=== PATIENT | male | born 1965 | race Caucasian/White ===

== ENCOUNTER 2016-12-22 11:08 | Inpatient (IN) | payer MEDICARE ==
[~2016-12-22] VITALS: Ht 165.1 cm; Wt 75.6 kg
[~2016-12-22 11:08] MED LIST: AMLO5TAB2 PO; BENZ1TAB PO; INVE3TAB2 PO; LITH450T PO; METO50TA PO; PALI234P IM; SERO300T PO
[2016-12-22 11:10] VITALS: BP 125/85; PULSE 84; RESP 16; TEMP 98.2; O2SAT 98
--- NOTE | 2016-12-22 11:35 | PD ---
HPI . can't sleep for 3 days Chief Complaint: Psychiatric Symptoms Time Seen by Provider: 11:35 Travel History International Travel<30 days: No Contact w/Intl Traveler<30days: No Traveled to known affect area: No History of Present Illness HPI 51-year-old male with hypertension, bipolar disorder and schizophrenia here with complaints of not being able sleep for the past 3 days. Patient says that he was regularly using lithium, but approximately one week ago his psychiatric provider decided to take him off that medication. He believes his consequence a few days later he has not been able to sleep due to being a little manic at home. He went to his [facility] today and was resumed on lithium, however due to his inability to sleep for the past 3 days he was advised to come to the emergency department for further evaluation. Patient is here and has no specific complaints. He denies any suicidal or homicidal ideation. He denies any mood disorder or abnormal thoughts or behaviors. He also denies any physical complaints. He tells me that overall he is feeling well and just needs to sleep. He is accompanied by his brother. Apparently patient lives with his mom, but she is been out of town for the past several days due to a recent in the family. This seems to have prompted the [facility] provider to send him in as he is not safe at home alone. PFSH Past Medical History Bipolar Disorder: Yes Anxiety: Yes Depression: Yes Cancer: No Cardiovascular Problems: No Diabetes: No Endocrine: No Genitourinary: No Hypertension: Yes Immune Disorder: No Implanted Vascular Access Dvce: No Musculoskeletal: No Neurologic: No Psychiatric: Yes Reproductive: No Respiratory: No Past Surgical History Surgical History: No Previous Surgery Other Surgery: Yes (HERNIA) Social History Alcohol Use: No Tobacco Use: No Substance Use: No Allergies-Medications (Allergen,Severity, Reaction): Coded Allergies: Abilify (Verified Allergy, Severe, tongue swells, 03/25/15) Reported Meds & Prescriptions Reported Meds & Active Scripts Active Seroquel (Quetiapine Fumarate) 300 Mg Tab 300 Mg PO HS [place] Carbonate ER ([place] Carbonate) 450 Mg Tab 450 Mg PO BID Invega (Paliperidone ER) 3 Mg Tab 3 Mg PO DIRECTED Invega Sustenna Inj (Paliperidone Palmitate) 234 Mg/1.5 Ml Inj 234 Mg IM Q21 DAYS Metoprolol Tartrate 50 Mg Tab 50 Mg PO BID Amlodipine (Amlodipine Besylate) 5 Mg Tab 5 Mg PO DAILY Reported Benztropine (Benztropine Mesylate) 0.5 Mg Tab 1 Mg PO HS Review of Systems General / Constitutional: No: Fever Eyes: No: Visual changes HENT: No: Headaches Cardiovascular: No: Chest Pain or Discomfort Respiratory: No: Shortness of Breath Gastrointestinal: No: Abdominal Pain Genitourinary: No: Dysuria Musculoskeletal: No: Pain Skin: No Rash Neurologic: No: Weakness Psychiatric: Positive: Other (insomnia), No: Depression Endocrine: No: Polydipsia Hematologic/Lymphatic: No: Easy Bruising Physical Exam Narrative GENERAL: AAO x 3, no acute distress, Well-nourished, well-developed patient. SKIN: Warm and dry. No visible rashes or bruising. HEAD: Normocephalic and atraumatic. EYES: No scleral icterus. No injection or drainage. EOM intact, PERRLA ENT: No nasal drainage noted. Mucous membranes pink. Airway patent. NECK: Supple, trachea midline. No JVD. No lymphadenopathy CARDIOVASCULAR: Regular rate and rhythm without murmurs, gallops, or rubs. RESPIRATORY: Breath sounds equal bilaterally. No accessory muscle use. No rhonchi or rales. GASTROINTESTINAL: Abdomen soft, non-tender, nondistended. EXTREMITIES: No cyanosis or edema. BACK: No obvious deformity. No CVA tenderness. 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/l, UE and LE 5/5, no focal deficits PSYCH: AAO x 3, flat affect Data Data Last Documented VS Vital Signs Date Time Temp Pulse Resp B/P Pulse Ox O2 Delivery O2 Flow Rate FiO2 12/22/16 11:10 98.2 84 16 125/85 98 Orders Complete Blood Count With Diff (12/22/16 11:42) Comprehensive Metabolic Panel (12/22/16 11:42) Psych Screen (12/22/16 11:42) Drug Screen, Random Urine (12/22/16 11:42) Alcohol (Ethanol) (12/22/16 11:42) Salicylates (Aspirin) (12/22/16 11:42) Tylenol (Acetaminophen) (12/22/16 11:42) Labs Laboratory Tests Test 12/22/16 12/22/16 12:00 12:35 White Blood Count 10.9 TH/MM3 Red Blood Count 5.30 MIL/MM3 Hemoglobin 14.4 GM/DL Hematocrit 43.8 % Mean Corpuscular Volume 82.7 FL Mean Corpuscular Hemoglobin 27.1 PG Mean Corpuscular Hemoglobin 32.7 % Concent Red Cell Distribution Width 14.2 % Platelet Count 268 TH/MM3 Mean Platelet Volume 7.3 FL Neutrophils (%) (Auto) 74.0 % Lymphocytes (%) (Auto) 15.8 % Monocytes (%) (Auto) 8.8 % Eosinophils (%) (Auto) 0.9 % Basophils (%) (Auto) 0.5 % Neutrophils # (Auto) 8.1 TH/MM3 Lymphocytes # (Auto) 1.7 TH/MM3 Monocytes # (Auto) 1.0 TH/MM3 Eosinophils # (Auto) 0.1 TH/MM3 Basophils # (Auto) 0.0 TH/MM3 CBC Comment DIFF FINAL Differential Comment Sodium Level 137 MEQ/L Potassium Level 4.1 MEQ/L Chloride Level 107 MEQ/L Carbon Dioxide Level 22.0 MEQ/L Anion Gap 8 MEQ/L Blood Urea Nitrogen 11 MG/DL Creatinine 1.15 MG/DL Estimat Glomerular Filtration 67 ML/MIN Rate Random Glucose 110 MG/DL Calcium Level 9.7 MG/DL Total Bilirubin 0.5 MG/DL Aspartate Amino Transf 11 U/L (AST/SGOT) Alanine Aminotransferase 22 U/L (ALT/SGPT) Alkaline Phosphatase 127 U/L Total Protein 8.0 GM/DL Albumin 4.2 GM/DL Salicylates Level LESS THAN 1.7 MG/DL Acetaminophen Level LESS THAN 2.0 MCG/ML Ethyl Alcohol Level LESS THAN 3 MG/DL Urine Opiates Screen NEG Urine Barbiturates Screen NEG Urine Amphetamines Screen NEG Urine Benzodiazepines Screen NEG Urine Cocaine Screen NEG Urine Cannabinoids Screen NEG MDM Medical Decision Making Medical Screen Exam Complete: Yes Emergency Medical Condition: Yes Medical Record Reviewed: Yes Differential Diagnosis Insomnia, bipolar disorder, adverse effect of medication Narrative Course 51-year-old male here with complaints of inability to sleep for the past 3 days due to recent medication change. Labs have been ordered. If they're within normal limits, patient will be cleared for psych screen. Laboratory Tests Test 12/22/16 12/22/16 12:00 12:35 White Blood Count 10.9 TH/MM3 Red Blood Count 5.30 MIL/MM3 Hemoglobin 14.4 GM/DL Hematocrit 43.8 % Mean Corpuscular Volume 82.7 FL Mean Corpuscular Hemoglobin 27.1 PG Mean Corpuscular Hemoglobin 32.7 % Concent Red Cell Distribution Width 14.2 % Platelet Count 268 TH/MM3 Mean Platelet Volume 7.3 FL Neutrophils (%) (Auto) 74.0 % Lymphocytes (%) (Auto) 15.8 % Monocytes (%) (Auto) 8.8 % Eosinophils (%) (Auto) 0.9 % Basophils (%) (Auto) 0.5 % Neutrophils # (Auto) 8.1 TH/MM3 Lymphocytes # (Auto) 1.7 TH/MM3 Monocytes # (Auto) 1.0 TH/MM3 Eosinophils # (Auto) 0.1 TH/MM3 Basophils # (Auto) 0.0 TH/MM3 CBC Comment DIFF FINAL Differential Comment Sodium Level 137 MEQ/L Potassium Level 4.1 MEQ/L Chloride Level 107 MEQ/L Carbon Dioxide Level 22.0 MEQ/L Anion Gap 8 MEQ/L Blood Urea Nitrogen 11 MG/DL Creatinine 1.15 MG/DL Estimat Glomerular Filtration 67 ML/MIN Rate Random Glucose 110 MG/DL Calcium Level 9.7 MG/DL Total Bilirubin 0.5 MG/DL Aspartate Amino Transf 11 U/L (AST/SGOT) Alanine Aminotransferase 22 U/L (ALT/SGPT) Alkaline Phosphatase 127 U/L Total Protein 8.0 GM/DL Albumin 4.2 GM/DL Salicylates Level LESS THAN 1.7 MG/DL Acetaminophen Level LESS THAN 2.0 MCG/ML Ethyl Alcohol Level LESS THAN 3 MG/DL Urine Opiates Screen NEG Urine Barbiturates Screen NEG Urine Amphetamines Screen NEG Urine Benzodiazepines Screen NEG Urine Cocaine Screen NEG Urine Cannabinoids Screen NEG Labs reviewed. No urgent abnormalities. Alk phos elevated, recommend outpatient f/u. Patient medically cleared for psych screen. Diagnosis Primary Impression: Bipolar disorder, manic Condition: Stable Radha Duong Dec 22, 2016 11:35 Radha Duong Dec 22, 2016 11:35
[2016-12-22 12:11] LABS: AUTOMATED NEUTROPHIL # 8.1 TH/MM3 (1.8-7.7); BASOPHIL % 0.5 % (0.0-2.0); EOSINOPHIL # 0.1 TH/MM3 (0-0.4); EOSINOPHIL % 0.9 % (0.0-4.0); HEMATOCRIT 43.8 % (39.0-51.0); HEMO FLAGS DIFF FINAL; LYMPH % 15.8 % (9.0-44.0); LYMPHOCYTE # 1.7 TH/MM3 (1.0-4.8); MEAN CELL VOLUME 82.7 FL (80.0-100.0); MEAN CORPUSCULAR HEMOGLOBIN 27.1 PG (27.0-34.0); MEAN CORPUSCULAR HGB CONC 32.7 % (32.0-36.0); MONO % 8.8 % (0.0-8.0); PLATELET COUNT 268 TH/MM3 (150-450); RED CELL DISTRIBUTION WIDTH 14.2 % (11.6-17.2); WHITE BLOOD COUNT 10.9 TH/MM3 (4.0-11.0)
[2016-12-22 12:26] LABS: ALT (GPT) 22 U/L (12-78); ANION GAP 8 MEQ/L (5-15); AST (GOT) 11 U/L (15-37); BLOOD UREA NITROGEN 11 MG/DL (7-18); CHLORIDE 107 MEQ/L (98-107); GLOMERULAR FILTRATION RATE 67 ML/MIN (>89); POTASSIUM 4.1 MEQ/L (3.5-5.1); SODIUM (NA) 137 MEQ/L (136-145)
[2016-12-22 12:27] LABS: ALKALINE PHOSPHATASE 127 U/L (45-117); TOTAL BILIRUBIN ADULT 0.5 MG/DL (0.2-1.0)
[2016-12-22] MEDS ORDERED: BENZ0.5T PO (12:28)
[2016-12-22 12:48] LABS: ACETAMINOPHEN LESS THAN 2.0 MCG/ML (10.0-30.0)
[2016-12-22 13:03] LABS: AMPHETAMINE, URINE NEG (NEG); BARBITURATES, URINE NEG (NEG); COCAINE, URINE NEG (NEG)
[2016-12-22 17:07] VITALS: BP 141/88; PULSE 106; RESP 20; TEMP 97.8; O2SAT 98
[2016-12-22 18:32] VITALS: BP 113/60; PULSE 60; RESP 18; TEMP 98; O2SAT 95
[2016-12-23 02:24] VITALS: BP 141/93; PULSE 125; RESP 18; O2SAT 98
[2016-12-23 06:18] VITALS: PULSE 120
[2016-12-23 06:29] VITALS: BP 138/59; PULSE 120; RESP 18; O2SAT 98
[2016-12-23] MEDS: amLODIPine BESYLATE 5 MG TAB PO SCH (10:45)
[2016-12-23] MEDS: METOPROLOL TARTRATE 50 MG TAB PO SCH ×2 (10:45→20:37)
[2016-12-23 10:50] VITALS: BP 155/100; PULSE 100; RESP 20
--- NOTE | 2016-12-23 10:58 | PD ---
History of Present Illness Chief Complaint: Psychiatric Symptoms Time Seen by Provider: 10:35 Travel History International Travel<30 Days: No Contact w/Intl Traveler<30days: No Known affected area: No Legal Status Legal Status: Gay Act Rashid Act Signed By: Gay Johnson Comment: Avani Kingston History of Present Illness: History of Present Illness HPI 51-year-old male with record history of schizophrenia , paranoid type as well as bipolar disorder who presents to ED sent from [facility] outpatient provider Noah Catalan who apparently saw him in outpatient setting and recommended further evaluation for possible inpatient care. The note from MrLena Catalan reads that " Jose is compliant with medication yet remains manic and psychotic, not sleeping, very confused". It is reported that he has not slept in 3 days. The patient is seen in J pod. Awake, alert male. Poor hygiene. Poor concentration. He is unable to provide a cogent history manner as he is psychotic. He appears internally preoccupied although denies auditory hallucinations. 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 [place]. You know [employer]. He then states " How about them dolphins". He does tell me that he was unable to sleep last night. he is denying any suicidal or homicidal ideation. Patient has urinated in beverage cup while in J pod. Apparently patient lives with his mom, but she is been out of town for the past several days due to a recent in the family. This seems to have prompted the [facility] provider to send him in as he is not safe at home alone. Patient has an extensive psychiatric history including multiple admissions here under the care of Dr. García as well as being sent to [facility]. [facility] Past Medical History Bipolar Disorder: Yes Anxiety: Yes Depression: Yes Cancer: No Cardiovascular Problems: No Diabetes: No Endocrine: No Genitourinary: No Hypertension: Yes Immune Disorder: No Implanted Vascular Access Dvce: No Musculoskeletal: No Neurologic: No Psychiatric: Yes Reproductive: No Respiratory: No Past Surgical History Surgical History: No Previous Surgery Other Surgery: Yes (HERNIA) Psychiatric History Psychiatric History Hx Psychiatric Treatment: Multiple [facility] admissions . Last one in 2013. Has been a patietn at the [facility]. receives outpatietn care at [facility]. History of Inpatient Treatment: Yes Guns or firearms in home: No Social History As per record. Lives with mother. On disability. Unable to obtain any other meaningful history from patient . Hx Alcohol Use: No Hx Tobacco Use: No Hx Substance Use: No Hx of Substance Use Treatment: No Family Psychiatric History Unable to obtain Allergies-Medications (Allergen,Severity, Reaction): Coded Allergies: Abilify (Verified Allergy, Severe, tongue swells, 03/25/15) Reported Meds & Prescriptions Reported Meds & Active Scripts Active Seroquel (Quetiapine Fumarate) 300 Mg Tab 300 Mg PO HS [place] Carbonate ER ([place] Carbonate) 450 Mg Tab 450 Mg PO BID Invega (Paliperidone ER) 3 Mg Tab 3 Mg PO DIRECTED Invega Sustenna Inj (Paliperidone Palmitate) 234 Mg/1.5 Ml Inj 234 Mg IM Q21 DAYS Metoprolol Tartrate 50 Mg Tab 50 Mg PO BID Amlodipine (Amlodipine Besylate) 5 Mg Tab 5 Mg PO DAILY Reported Benztropine (Benztropine Mesylate) 0.5 Mg Tab 1 Mg PO HS Review of Systems ROS Limitations: Psychotic Exam Alert: Yes [place]: Person Mood: Calm Affect: Other (labile) Speech: Clear, Illogical Eye Contact: Indirect Memory Intact: Comment (unable to test) Hallucinations: Other (Appears internally stimulated) Suicidal: Ideation (denies any) Homicidal: Ideation (deneis any) Insight/Judgement poor. Impaired. [facility] Medical Decision Making Medical Record Reviewed: Yes Assessment/Plan 51 year old male with extensive psychiatric history as well as multiple psychiatric admissions who presents to Ed being referred by his outpatient psychiatric provider at [facility]. Patient is psychotic and reported has not slept in 3 days. At this time he requires increase in level of care such as inpatient treatment. He does not appear to have capacity at this time to sign for admission. Will convert to involuntary. Admit to inpatient unit for safety, stabilization adn medication adjustment. Orders Complete Blood Count With Diff (12/22/16 11:42) Comprehensive Metabolic Panel (12/22/16 11:42) Psych Screen (12/22/16 11:42) Drug Screen, Random Urine (12/22/16 11:42) Alcohol (Ethanol) (12/22/16 11:42) Salicylates (Aspirin) (12/22/16 11:42) Tylenol (Acetaminophen) (12/22/16 11:42) Diet Regular Basic (12/23/16 Breakfast) Results Vital Signs Date Time Temp Pulse Resp B/P Pulse Ox O2 Delivery O2 Flow Rate FiO2 12/23/16 10:03 120 18 12/23/16 06:29 120 18 138/59 98 12/23/16 06:18 120 12/23/16 02:24 125 18 141/93 98 12/22/16 18:32 98.0 60 18 113/60 95 Room Air 12/22/16 17:07 97.8 106 20 141/88 98 Room Air 12/22/16 11:10 98.2 84 16 125/85 98 Laboratory Tests Test 12/22/16 12/22/16 12:00 12:35 White Blood Count 10.9 Red Blood Count 5.30 Hemoglobin 14.4 Hematocrit 43.8 Mean Corpuscular Volume 82.7 Mean Corpuscular Hemoglobin 27.1 Mean Corpuscular Hemoglobin 32.7 Concent Red Cell Distribution Width 14.2 Platelet Count 268 Mean Platelet Volume 7.3 Neutrophils (%) (Auto) 74.0 Lymphocytes (%) (Auto) 15.8 Monocytes (%) (Auto) 8.8 Eosinophils (%) (Auto) 0.9 Basophils (%) (Auto) 0.5 Neutrophils # (Auto) 8.1 Lymphocytes # (Auto) 1.7 Monocytes # (Auto) 1.0 Eosinophils # (Auto) 0.1 Basophils # (Auto) 0.0 CBC Comment DIFF FINAL Differential Comment Sodium Level 137 Potassium Level 4.1 Chloride Level 107 Carbon Dioxide Level 22.0 Anion Gap 8 Blood Urea Nitrogen 11 Creatinine 1.15 Estimat Glomerular Filtration 67 Rate Random Glucose 110 Calcium Level 9.7 Total Bilirubin 0.5 Aspartate Amino Transf 11 (AST/SGOT) Alanine Aminotransferase 22 (ALT/SGPT) Alkaline Phosphatase 127 Total Protein 8.0 Albumin 4.2 Salicylates Level LESS THAN 1.7 Acetaminophen Level LESS THAN 2.0 Ethyl Alcohol Level LESS THAN 3 Urine Opiates Screen NEG Urine Barbiturates Screen NEG Urine Amphetamines Screen NEG Urine Benzodiazepines Screen NEG Urine Cocaine Screen NEG Urine Cannabinoids Screen NEG Diagnosis Primary Impression: Schizophrenia, paranoid, chronic Additional Impression: Bipolar disorder, manic Admitting Information Admitting Physician Requests: Admit Condition: Stable Problem Qualifiers Mariella Luna [place] Dec 23, 2016 10:58
[2016-12-23] MEDS ORDERED: MAGNESIUM HYDROXIDE SUSP 30 ML CUP PO PRN (11:00)
[2016-12-23] MEDS ORDERED: ALUMINUM/MAGNESIUM/SIMETH 30 ML CUP PO PRN (11:00)
[2016-12-23] MEDS ORDERED: ACETAMINOPHEN 325 MG TAB PO PRN (11:00)
[2016-12-23 13:21] VITALS: BP 120/91; PULSE 85; RESP 19; TEMP 97.4; O2SAT 98
[2016-12-23 18:14] VITALS: BP 123/91; PULSE 97; RESP 18; TEMP 97.5; O2SAT 97
[2016-12-23] MEDS: BENZTROPINE MESYLATE 1 MG TAB PO SCH (20:36)
[2016-12-23] MEDS ORDERED: QUEtiapine FUMARATE 300 MG TAB PO SCH (21:00)
[2016-12-24 06:09] VITALS: BP 150/98; PULSE 101; RESP 18; TEMP 98.7; O2SAT 96
[2016-12-24 09:43] LABS: ANION GAP 8 MEQ/L (5-15); BICARBONATE 24.4 MEQ/L (21.0-32.0); BLOOD UREA NITROGEN 12 MG/DL (7-18); CHLORIDE 107 MEQ/L (98-107); GLOMERULAR FILTRATION RATE 58 ML/MIN (>89); POTASSIUM 3.7 MEQ/L (3.5-5.1); SODIUM (NA) 139 MEQ/L (136-145)
[2016-12-24 09:46] LABS: HDL CHOLESTEROL 51.8 MG/DL (40.0-60.0); LDL CHOLESTEROL 80 MG/DL (0-99)
[2016-12-24] MEDS: METOPROLOL TARTRATE 50 MG TAB PO SCH ×2 (09:49→20:52)
[2016-12-24] MEDS: amLODIPine BESYLATE 5 MG TAB PO SCH (09:49)
[2016-12-24 12:22] LABS: HEMOGLOBIN A1a 1.6 %; HEMOGLOBIN A1b 1.6 %; HEMOGLOBIN Ao 85.1 %; HEMOGLOBIN LA1C 2.1 %; HEMOGLOBIN P3 3.6 %
--- NOTE | 2016-12-24 12:34 | HHI.HP ---
Provisional Diagnosis Admission Date Dec 23, 2016 at 11:16 [place] I. Schizoaffective disorder, bipolar type [place] II. Deferred Certification of Person's Competence To Provide Express and Informed Consent I have personally examined Jose Crooks , a person being served at [facility] on, Dec 24, 2016 12:09. Express and informed consent means consent voluntarily given in writing, by a competent person, after sufficient explanation and disclosure of the subject matter involved to enable the person to make a knowing and willful decision without any element of force, fraud, deceit, duress, or other form of constraint or coercion. This person is 18 years of age or older, is not now known to be incompetent to consent to treatment with a guardian advocate, and does not have a health care surrogate or proxy currently making medical treatment decisions. I have found this person to be one of the following: [] Competent to provide express and informed consent, as defined above, for voluntary admission to this facility and is competent to provide express and informed consent for treatment. He/she has the consistent capacity to make well reasoned, willful, and knowing decisions concerning his or her medical or mental health treatment. The person fully and consistently understands the purpose of the admission for examination/placement and is fully capable of personally exercising all rights assured [place] [] Incompetent to provide express and informed consent to voluntary admission, and this is incompetent to provide express and informed consent to treatment. The person must be transferred to involuntary status and a petition for a guardian advocate filed with the Circuit Court. [X] Refusing to provide express and informed consent to voluntary admission but is competent to provide express and informed consent for treatment. The person must be discharged or transferred to involuntary status. Form shall be completed within 24 hours of a person's arrival at the receiving facility and filed in the clinical record of each person: 1. Admitted on a voluntary basis 2. Permitted to provide express and informed consent to his/her own treatment 3. Allowed to transfer from involuntary to voluntary status 4. Prior to permitting a person to consent to his or her own treatment after having been previously found incompetent to consent to treatment. History of Present Illness Capacity: Has Capacity HPI As per ER documentation 51-year-old male with record history of schizophrenia , paranoid type as well as bipolar disorder who presents to ED sent from [facility] outpatient provider Noah Catalan who apparently saw him in outpatient setting and recommended further evaluation for possible inpatient care.The note from MrLena Catalan reads that " Jose is compliant with medication yet remains manic and psychotic, not sleeping, very confused". It is reported that he has not slept in 3 days.The patient is seen in J pod. Awake, alert male. Poor hygiene. Poor concentration. He is unable to provide a cogent history manner as he is psychotic. He appears internally preoccupied although denies auditory hallucinations. When asked about current psychiatric treatment he states " I served for the [employer] know [employer]. He then states " How about them dolphi[facility]". He does tell me that he was unable to sleep last night. he is denying any suicidal or homicidal ideation. Patient has urinated in beverage cup while in J pod. Apparently patient lives with his mom, but she is been out of town for the past several days due to a recent in the family. This seems to have prompted the [facility] provider to send him in as he is not safe at home alone.Patient has an extensive psychiatric history including multiple admissions here under the care of Dr. García as well as being sent to [facility]. 51-year-old man, domicile with his mother, unemployed, on SSI, with extensive psychiatric history of schizophrenia and bipolar disorder, multiple psychiatric hospitalizations, active outpatient psychiatric care in [facility], he is on Seroquel 300 mg, lithium 450 mg twice a day, benztropine 1 mg twice a day, Invega Sustenna 234 many grams mostly. He has no significant medical history, he was brought by outpatient provider in [facility] due to confusion and insomnia. Today in my evaluation she presents with a significant flat affect, poverty of speech and blocking thought. Patient answer basically with monosyllables, mostly with yes and no. Patient seems to be internally preoccupied, but he reports good mood, he says that he doesn't know the reason of his hospitalization, he reports compliant with his medications, he reports good appetite, good sleep, good level of concentration. Patient is oriented 3. No agitation or aggressive behavior has been reported. He denies suicidal and homicidal ideation, he denies visual and auditory hallucinations. Patient reports auditory hallucinations of voices telling him "you are a CIC", but he cannot explain what CIC means. Review of Systems Constitutional: DENIES: Diaphoretic episodes, Fatigue, Fever, Weight gain, Weight loss, Chills, Dizziness, Change in appetite, Night Sweats Endocrine: DENIES: Heat/cold intolerance, Polydipsia, Polyuria, Polyphagia Eyes: DENIES: Blurred vision, Diplopia, Eye inflammation, Eye pain, Vision loss , Photosensitivity, Double Vision Respiratory: DENIES: Apneas, Cough, Snoring, Wheezing, Hemoptysis, Sputum production, Shortness of breath Gastrointestinal: DENIES: Abdominal pain, Black stools, Bloody stools, Constipation, Diarrhea, Nausea, Vomiting, Difficulty Swallowing, Anorexia Musculoskeletal: DENIES: Joint pain, Muscle aches, Stiffness, Joint Swelling, Back pain, Neck pain Hematologic/lymphatic: DENIES: Bruising, Lymphadenopathy Immunologic/allergic: DENIES: Eczema, Urticaria Neurologic: DENIES: Abnormal gait, Headache, Localized weakness, Paresthesias, Seizures, Speech Problems, Tremor, Poor Balance Psychiatric: DENIES: Anxiety, Confusion, Mood changes, Depression, Hallucinations, Agitation, Suicidal Ideation, Homicidal Ideation, Delusions Substance Abuse History Drugs/Alcohol past 12 months Patient denies the use of drug and alcohol Past Family Social History Coded Allergies: Abilify (Verified Allergy, Severe, tongue swells, 03/25/15) Active Scripts Quetiapine (Seroquel)300 Mg [id number] Mg PO HS #30 TAB Ref 2 Prov:Mike García MD 06/13/16 [place] Carbonate ER 450 Mg [id number] Mg PO BID #60 TAB Ref 2 Prov:Mike García MD 06/13/16 Paliperidone ER (Invega)3 Mg Tab3 Mg PO DIRECTED #30 TAB Ref 0 Prov:Mike García MD 05/16/16 Paliperidone Palmitate Inj (Invega Sustenna Inj)234 Mg/1.5 Ml [id number] Mg IM q21 days #2 VIAL Ref 0 Prov:Mike García MD 05/16/16 Metoprolol Tartrate 50 Mg Tab50 Mg PO BID #60 TAB Ref 0 Prov:Mike García MD 04/06/16 Amlodipine 5 Mg Tab5 Mg PO DAILY #30 TAB Ref 0 Prov:Mike García MD 11/3/16 Reported Medications Benztropine 0.5 Mg Tab1 Mg PO HS #30 TAB Ref 0 12/22/16 Current Medications Medications (Trade) Dose Ordered Sig/John Paul Route Start Time Stop Time Status Last Admin (Norvasc) 5 mg DAILY PO 12/23/16 10:45 12/24/16 09:49 (Cogentin) 1 mg HS PO 12/23/16 21:00 12/23/16 20:36 (Lopressor) 50 mg BID PO 12/23/16 10:45 12/24/16 09:49 (SEROquel) 300 mg HS PO 12/23/16 21:00 12/23/16 20:37 (Tylenol) 650 mg Q4H PRN PO 12/23/16 11:00 (Milk Of Magnesia Liq) 30 ml DAILY PRN PO 12/23/16 11:00 (Mag-Al Plus Susp Liq) 30 ml Q6H PRN PO 12/23/16 11:00 (Eskalith Sr) 450 mg BID PO 12/24/16 12:15 UNV Family History He denies family psychiatric history Social History Patient was born and raised in [place], he lives with his mother in [place], unemployed, highest level of education is 12th Patient's Strengths (min. 2) Supported of his mother Physical Exam Patient seems to be hypoactive, with marked psychomotor retardation, hypoverbal , but no tremors, no EPS, no stiffness, no rigidity Vital Signs Vital Signs Date Time Temp Pulse Resp B/P Pulse Ox O2 Delivery O2 Flow Rate FiO2 12/24/16 06:09 98.7 101 18 150/98 96 12/23/16 10:50 Room Air Mental Status Examination Appearance man, age appearing, with marked psychomotor retardation, hyperactive, hypoverbal, poorly cooperative Speech: Hesitant, Slow, Other (poverty of speech) Orientation: x3 Memory: Unremarkable Thought Process: Goal Directed, Thought Blocking Thought Content: Paranoid Language Limited due to level of psychosis Fund of Knowledge Limited due to level of psychosis Hallucination Type: None Attention and Concentration: Abnormal Suicidal Ideation: No Previous Suicide Attempts: No Homicidal Ideation: No Previous Homicide Attempts: No Insight: Poor Affect if Inappropriate: Flat Mood: Sad Motor Activity: Normal gait Assessment & Plan Problem List: (1) Schizophrenia, paranoid, chronic Assessment & Plan: On psychiatric evaluation today patient presents with pronounced negative symptoms of schizophrenia, abulia, alogia, flattened affect , thought blocking, poverty of speech and psychomotor retardation. As per primary mental health practitioner, patient hasn't been sleeping, has been acting bizarre, and very confused. At the moment the ethnologic of current presentation is unclear, but seems to be an acute decompensation of schizophrenia. Patient has been compliant with his medication, even though lithium levels are suboptimal. Will order a medicine consult to rule out medical causes of confusion and altered mental status. Will order CPK to rule out NMS, since patient shows some rigidity and also autonomic instability. Will restart psychotropics at the same dose. ICD Code: F20.0 Assessment & Plan Estimated LOS: Elton Lim MD Dec 24, 2016 12:34
[2016-12-24] MEDS: LITHIUM CARBONATE 450 MG CONTROLLED RELEASE TAB PO SCH ×2 (15:41→20:52)
--- NOTE | 2016-12-24 15:46 | PD.CONS ---
HPI Service [place] [facility] Consult Requested By Psychiatric team Reason for Consult Increased creatinine, after mental status, to just underlying medical conditions Primary Care Physician Parviz Guzman MD Diagnoses: History of Present Illness 51-year-old male with past medical history which includes hypertension, bipolar disorder and schizophrenia initially presented to the emergency department with complaints of not being able sleep for the past 3 days. Patient stopped taking his lithium approximately one week ago. He believes his consequence a few days later he has not been able to sleep. He went to his [facility] and was resumed on lithium, however due to his inability to sleep for the past 3 days he was advised to come to the emergency department for further evaluation. We' ve been patient currently inpatient psychiatric center with been consulted for assistance in managing underlying medical conditions increased creatinine after mental status. Patient offers no specific complaints. Patient lives with his mom, but she has been out of town for the past several days. Patient denies fevers chills nausea vomiting diarrhea constipation shortness of breath or chest pain. Review of Systems ROS Limitations: Poor Historian Except as stated in HPI: all other systems reviewed are Neg Past Family Social History Allergies: Coded Allergies: Abilify (Verified Allergy, Severe, tongue swells, 03/25/15) Past Medical History Hypertension, schizophrenia and bipolar Past Surgical History Hernia repair in the past Reported Medications Seroquel (Quetiapine Fumarate) 300 Mg Tab 300 Mg PO HS [place] Carbonate ER ([place] Carbonate) 450 Mg Tab 450 Mg PO BID Invega (Paliperidone ER) 3 Mg Tab 3 Mg PO DIRECTED Invega Sustenna Inj (Paliperidone Palmitate) 234 Mg/1.5 Ml Inj 234 Mg IM Q21 DAYS Metoprolol Tartrate 50 Mg Tab 50 Mg PO BID Amlodipine (Amlodipine Besylate) 5 Mg Tab 5 Mg PO DAILY Benztropine (Benztropine Mesylate) 0.5 Mg Tab 1 Mg PO HS Active Ordered Medications Current Medications Medications (Trade) Dose Ordered Sig/John Paul Route Start Time Stop Time Status Last Admin (Norvasc) 5 mg DAILY PO 12/23/16 10:45 12/24/16 09:49 (Cogentin) 1 mg HS PO 12/23/16 21:00 12/23/16 20:36 (Lopressor) 50 mg BID PO 12/23/16 10:45 12/24/16 09:49 (Tylenol) 650 mg Q4H PRN PO 12/23/16 11:00 (Milk Of Magnesia Liq) 30 ml DAILY PRN PO 12/23/16 11:00 (Mag-Al Plus Susp Liq) 30 ml Q6H PRN PO 12/23/16 11:00 (Eskalith Sr) 450 mg BID PO 12/24/16 12:15 (SEROquel) 400 mg HS PO 12/24/16 21:00 Family History Unable to obtain at this time Social History Denies EtOH use tobacco use or illicit drug use Physical Exam Vital Signs Vital Signs Date Time Temp Pulse Resp B/P Pulse Ox O2 Delivery O2 Flow Rate FiO2 12/24/16 06:09 98.7 101 18 150/98 96 12/23/16 18:14 97.5 97 18 123/91 97 Physical Exam GENERAL: This is a well-nourished, well-developed patient, in no apparent distress. SKIN: No rashes, ecchymoses or lesions. Cool and dry. HEAD: Atraumatic. Normocephalic. No temporal or scalp tenderness. EYES: Extraocular motions intact. No scleral icterus. No drainage. Right lower lid mild erythema-bilateral eyes appear dry CARDIOVASCULAR: Regular rate and rhythm RESPIRATORY: Clear to auscultation. Breath sounds equal bilaterally. No wheezes , rales, or rhonchi. GASTROINTESTINAL: Abdomen soft, non-tender, nondistended. No guarding. MUSCULOSKELETAL: Extremities without clubbing, cyanosis, or edema. No joint tenderness, effusion, or edema noted. No calf tenderness. Negative Homans sign bilaterally. NEUROLOGICAL: Awake and alert. No focal deficits appreciated. Motor and sensory grossly within normal limits. Five out of 5 muscle strength in all muscle groups. Normal speech. Laboratory Laboratory Tests Test 12/24/16 08:50 Sodium Level 139 Potassium Level 3.7 Chloride Level 107 Carbon Dioxide Level 24.4 Anion Gap 8 Blood Urea Nitrogen 12 Creatinine 1.31 Estimat Glomerular Filtration 58 Rate Random Glucose 141 Hemoglobin A1c 5.6 Calcium Level 9.5 Total Creatine Kinase 130 Triglycerides Level 118 Cholesterol Level 155 LDL Cholesterol 80 HDL Cholesterol 51.8 Cholesterol/HDL Ratio 2.99 Result Diagram: 12/22/16 1200 12/24/16 0850 Assessment and Plan Problem List: (1) Bipolar disorder, manic ICD Code: F31.10 Status: Chronic (2) Schizophrenia, paranoid, chronic ICD Code: F20.0 Status: Chronic Assessment and Plan 51-year-old male with past medical history which includes hypertension, bipolar disorder and schizophrenia initially presented to the emergency department with complaints of not being able sleep for the past 3 days. Bipolar Insomnia Management per psychiatric team Elevated creatinine-appears chronic Patient appears her baseline kidney injury with creatinine at baseline around 1.1-1.2 Encourage by mouth hydration Recheck in AM Avoid nephrotoxins Hypertension chronic Resume patient's home medications include metoprolol and Norvasc Monitor blood pressure trend Dry eye bilaterally Refresh Tears every 6 hours DVT prophylaxis patient is ambulatory and low risk Discussed with nursing and patient This note was transcribed by scribe [Marva Welsh]. I, Dr. Mario Chaudhary personally performed the history, physical exam, and medical decision making; and confirmed the accuracy of the information in the transcribed note. Authenticated by Dr. Mario Chaudhary on 12/24/16 at 1550. Marva Welsh Dec 24, 2016 15:46 Mario Chaudhary MD Dec 24, 2016 16:22
[2016-12-24] MEDS ORDERED: LORazepam 2 MG TAB PO ONE (16:15)
[2016-12-24] MEDS: CARBOXYMETHYLCELL SOD 0.5% OPTH SOLN 15 ML BTL EACH EYE SCH (18:00)
[2016-12-24] MEDS: QUEtiapine FUMARATE 200 MG TAB PO SCH (20:53)
[2016-12-24] MEDS: BENZTROPINE MESYLATE 1 MG TAB PO SCH (20:53)
[2016-12-24 22:16] VITALS: BP 123/84; PULSE 93; RESP 18; TEMP 96.7; O2SAT 97
[2016-12-25] MEDS: CARBOXYMETHYLCELL SOD 0.5% OPTH SOLN 15 ML BTL EACH EYE SCH ×6 (00:45→22:07)
[2016-12-25 05:44] VITALS: BP 113/67; PULSE 71; RESP 17; TEMP 97.5; O2SAT 99
[2016-12-25] MEDS: LITHIUM CARBONATE 450 MG CONTROLLED RELEASE TAB PO SCH ×2 (09:09→21:48)
[2016-12-25] MEDS: METOPROLOL TARTRATE 50 MG TAB PO SCH ×2 (09:09→21:48)
[2016-12-25] MEDS: amLODIPine BESYLATE 5 MG TAB PO SCH (09:09)
--- NOTE | 2016-12-25 11:56 | PD.PSY.CON ---
Provisional Diagnosis Admission Date Dec 23, 2016 at 11:16 [place] I. 1. Schizoaffective disorder, bipolar type, acute exacerbation [place] II. 1. Rule out some degree of intellectual disability [place] V. GAF is 30 presently History of Present Illness Service Psychiatry Consult Requested By Dr. Bass Reason for Consult Second opinion for involuntary psychiatric hospitalization Primary Care Physician Parviz Guzman MD HPI From Dr. Bass's H&P: As per ER documentation 51-year-old male with record history of schizophrenia , paranoid type as well as bipolar disorder who presents to ED sent from [facility] outpatient provider Noah Catalan who apparently saw him in outpatient setting and recommended further evaluation for possible inpatient care.The note from Mr. Noah Catalan reads that " Jose is compliant with medication yet remains manic and psychotic, not sleeping, very confused". It is reported that he has not slept in 3 days.The patient is seen in J pod. Awake, alert male. Poor hygiene. Poor concentration. He is unable to provide a cogent history manner as he is psychotic. He appears internally preoccupied although denies auditory hallucinations. 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 [employer]. You know [employer]. He then states " How about them dolphins". He does tell me that he was unable to sleep last night. he is denying any suicidal or homicidal ideation. Patient has urinated in beverage cup while in J pod. Apparently patient lives with his mom, but she is been out of town for the past several days due to a recent in the family. This seems to have prompted the [facility] provider to send him in as he is not safe at home alone.Patient has an extensive psychiatric history including multiple admissions here under the care of Dr. García as well as being sent to [facility]. 51-year-old man, domicile with his mother, unemployed, on SSI, with extensive psychiatric history of schizophrenia and bipolar disorder, multiple psychiatric hospitalizations, active outpatient psychiatric care in [facility], he is on Seroquel 300 mg, lithium 450 mg twice a day, benztropine 1 mg twice a day, Invega Sustenna 234 many grams mostly. He has no significant medical history, he was brought by outpatient provider in [facility] due to confusion and insomnia. Today in my evaluation she presents with a significant flat affect, poverty of speech and blocking thought. Patient answer basically with monosyllables, mostly with yes and no. Patient seems to be internally preoccupied, but he reports good mood, he says that he doesn't know the reason of his hospitalization, he reports compliant with his medications, he reports good appetite, good sleep, good level of concentration. Patient is oriented 3. No agitation or aggressive behavior has been reported. He denies suicidal and homicidal ideation, he denies visual and auditory hallucinations. Patient reports auditory hallucinations of voices telling him "you are a CIC", but he cannot explain what CIC means. Patient seen and examined with counselor and nurse. Chart reviewed. Case discussed with nursing staff. On my examination today, the patient tells me that he stopped his lithium because "it made me too tired." It is possible there is some degree of intellectual disability. He says that he has been feeling increasingly stressed out lately because his aunt just at age 103. When I ask about suicidal ideation he says that he might like to go join his aunt in . He also has some sort of beliefs that what happens to him also happens to his family. No homicidal ideation. Appears internally preoccupied. No other delusions for me although the patient reportedly told the nurse that he thought that he was bicycle racer overnight. Mood somewhat depressed. Remainder of the psychiatric ROS is negative. Past psychiatric history: Patient likely an unreliable historian reports a history of schizophrenia and follows at [facility]. I do see that there is a brief note on the chart from nurse practitioner Noah at [facility] detailing patient's recent decompensation. Patient denies any history of psychiatric admissions or suicide attempts. Family history: Patient reports that his brother has bipolar disorder. Chemical dependency history: Patient denies any abuse of drugs or alcohol. Social history: Patient reports that he lives with his mother. He is high school educated. He is single with no children. Patient tells me that his brother Aaron is his guardian of person. With the patient's permission, I did endeavor to reach Aaron at [phone]. I left a generic voicemail requesting a call back. Review of Systems ROS Limitations: Poor Historian Except as stated in HPI: all other systems reviewed are Neg Past Family Social History Coded Allergies: Nevaehfenoc (Verified Allergy, Severe, tongue swells, 10/22/15) Past Medical History See electronic medical record Active Scripts Quetiapine (Seroquel)300 Mg [id number] Mg PO HS #30 TAB Ref 2 Prov:Mike García MD 06/13/16 [place] Carbonate ER 450 Mg [id number] Mg PO BID #60 TAB Ref 2 Prov:Mike García MD 06/13/16 Paliperidone ER (Invega)3 Mg Tab3 Mg PO DIRECTED #30 TAB Ref 0 Prov:Mike García MD 05/16/16 Paliperidone Palmitate Inj (Invega Sustenna Inj)234 Mg/1.5 Ml [id number] Mg IM q21 days #2 VIAL Ref 0 Prov:Mike García MD 05/16/16 Metoprolol Tartrate 50 Mg Tab50 Mg PO BID #60 TAB Ref 0 Prov:Mike García MD 04/06/16 Amlodipine 5 Mg Tab5 Mg PO DAILY #30 TAB Ref 0 Prov:Mike García MD 04/06/16 Reported Medications Benztropine 0.5 Mg Tab1 Mg PO HS #30 TAB Ref 0 12/22/16 Current Medications Medications (Trade) Dose Ordered Sig/John Paul Route Start Time Stop Time Status Last Admin (Norvasc) 5 mg DAILY PO 12/23/16 10:45 12/25/16 09:09 (Cogentin) 1 mg HS PO 12/23/16 21:00 12/24/16 20:53 (Lopressor) 50 mg BID PO 12/23/16 10:45 12/25/16 09:09 (Tylenol) 650 mg Q4H PRN PO 12/23/16 11:00 (Milk Of Magnesia Liq) 30 ml DAILY PRN PO 12/23/16 11:00 (Mag-Al Plus Susp Liq) 30 ml Q6H PRN PO 12/23/16 11:00 (Eskalith Sr) 450 mg BID PO 12/24/16 12:15 12/25/16 09:09 (SEROquel) 400 mg HS PO 12/24/16 21:00 12/24/16 20:53 (Refresh Tears 0.5% Opth Soln) 1 drop Q6HR EACH EYE 12/24/16 18:00 12/25/16 06:00 Patient's Strengths (min. 2) In a monitored setting. Verbally fluent. Physical Exam Physical exam completed by hospitalist seo consultant. On my examination today, the patient appears to be in no acute physical distress. No motor abnormalities noted. Labs and vitals reviewed: Vital Signs Vital Signs Date Time Temp Pulse Resp B/P Pulse Ox O2 Delivery O2 Flow Rate FiO2 12/25/16 05:44 97.5 71 17 113/67 99 12/23/16 10:50 Room Air Lab Results Item Value Date Time White Blood Count 10.9 TH/MM3 12/22/16 1200 Hemoglobin 14.4 GM/DL 12/22/16 1200 Platelet Count 268 TH/MM3 12/22/16 1200 Sodium Level 140 MEQ/L 12/25/16 0925 Potassium Level 3.6 MEQ/L 12/25/16 0925 Chloride Level 105 MEQ/L 12/25/16 0925 Carbon Dioxide Level 25.1 MEQ/L 12/25/16 0925 Anion Gap 10 MEQ/L 12/25/16 0925 Blood Urea Nitrogen 18 MG/DL 12/25/16 0925 Creatinine 1.20 MG/DL 12/25/16 0925 Hemoglobin A1c 5.6 % 12/24/16 0850 Aspartate Amino Transf (AST/SGOT) 11 U/L L 12/22/16 1200 Alanine Aminotransferase (ALT/SGPT) 22 U/L 12/22/16 1200 Alkaline Phosphatase 127 U/L H 12/22/16 1200 Total Creatine Kinase 130 U/L 12/24/16 0850 [place] Level 0.3 MEQ/L L 12/23/16 1130 Urine Opiates Screen NEG 12/22/16 1235 Urine Barbiturates Screen NEG 12/22/16 1235 Urine Amphetamines Screen NEG 12/22/16 1235 Urine Benzodiazepines Screen NEG 12/22/16 1235 Urine Cocaine Screen NEG 12/22/16 1235 Urine Cannabinoids Screen NEG 12/22/16 1235 Ethyl Alcohol Level LESS THAN 3 MG/DL 12/22/16 1200 Mental Status Examination Speech: Hesitant, Slow, Other (some ongoingpoverty of speech) Orientation: Person, Place (at least) Memory: Unremarkable (possibly somewhat confabulated) Thought Process: Circumstantial Thought Content: Paranoid Hallucination Type: None (Denies AVH but appears somewhat int stim) Attention and Concentration: Abnormal Suicidal Ideation: No Previous Suicide Attempts: No Homicidal Ideation: No Previous Homicide Attempts: No Insight: Poor Judgment: Poor Affect: Other (blunted) Mood: Other (No low/elevated mood) Assessment & Plan Problem List: (1) Schizoaffective disorder ICD Code: F25.9 Assessment & Plan Given the circumstances of the patient's presentation here and his presentation on my examination today, I concur with Dr. Bass that the patient meets criteria for involuntary psychiatric hospitalization under the [place] act. I completed the second opinion paperwork. I will be assuming primary care of this patient. I will continue the patient's Seroquel and lithium as ordered along with his Cogentin for side effect management. I will add Ativan as needed for anxiety. I will check a TSH and a BMP in the morning as the patient is on lithium therapy and plan to check a lithium level later this week. I will request a healthcare surrogate/guardian advocate. Continue to monitor on the inpatient unit. Collateral. Continue other medications and care as ordered. Discharge Planning Pending stabilization Request HC Surrog/Guard Advoc?: Yes Problem Qualifiers (1) Schizoaffective disorder: Qualified Code: F25.0 - Schizoaffective disorder, bipolar type Masoud Bradshaw MD Dec 25, 2016 11:56
[2016-12-25 11:59] LABS: BICARBONATE 25.1 MEQ/L (21.0-32.0); POTASSIUM 3.6 MEQ/L (3.5-5.1)
[2016-12-25] MEDS ORDERED: LORazepam 2 MG/ML VIAL IM PRN (13:00)
[2016-12-25 18:08] VITALS: BP 174/74; PULSE 84; RESP 18; TEMP 96.9
[2016-12-25 20:30] VITALS: BP 148/90; PULSE 101
[2016-12-25] MEDS: BENZTROPINE MESYLATE 1 MG TAB PO SCH (21:48)
[2016-12-25] MEDS: QUEtiapine FUMARATE 200 MG TAB PO SCH (21:48)
[2016-12-26] MEDS: CARBOXYMETHYLCELL SOD 0.5% OPTH SOLN 15 ML BTL EACH EYE SCH ×3 (06:00→18:00)
[2016-12-26 06:02] VITALS: BP 135/96; PULSE 89; RESP 18; TEMP 97.9; O2SAT 97
[2016-12-26] MEDS: amLODIPine BESYLATE 5 MG TAB PO SCH (09:01)
[2016-12-26] MEDS: LITHIUM CARBONATE 450 MG CONTROLLED RELEASE TAB PO SCH ×2 (09:01→21:27)
[2016-12-26] MEDS: METOPROLOL TARTRATE 50 MG TAB PO SCH ×2 (09:01→21:27)
[2016-12-26 09:50] LABS: BICARBONATE 26.1 MEQ/L (21.0-32.0); POTASSIUM 4.1 MEQ/L (3.5-5.1)
--- NOTE | 2016-12-26 15:43 | HHI.PYPN ---
Subjective Remarks Patient seen and examined with counselor and nurse. Chart reviewed. Case discussed in treatment team. On my examination today, patient complains of poor sleep. Requesting to titrate Seroquel. Complains of auditory hallucinations of "static." Denies command auditory hallucinations. Denies SI or HI. Complains of dry mouth. Also requesting softer diet as his dentures do not allow him to eat current food. Also complaining of constipation. No other medication side effects or physical complaints. Review of Systems ROS Limitations: Poor Historian Except as stated in HPI: all other systems reviewed are Neg Objective Alert: Yes [place]: Person, Place (at least) Mood: Calm Affect: Blunted Memory Intact: Comment (not formally assessed today) Hallucinations: Auditory ("static") Delusions: No Delusion Type: Other (no delusions) Suicidal: Ideation (denies SI) Homicidal: Ideation (denies HI) Insight/Judgment Poor Remarks No motor abnormalities. Thought process fairly linear. Grooming and hygiene fair at best. Labs Test 12/26/16 08:15 Sodium Level 137 MEQ/L Potassium Level 4.1 MEQ/L Chloride Level 105 MEQ/L Carbon Dioxide Level 26.1 MEQ/L Anion Gap 6 MEQ/L Blood Urea Nitrogen 15 MG/DL Creatinine 1.23 MG/DL Estimat Glomerular Filtration 62 ML/MIN Rate Random Glucose 134 MG/DL Calcium Level 10.0 MG/DL Thyroid Stimulating Hormone 2.080 uIU/ML 3rd Gen Labs reviewed. GFR stable. TSH within normal limits. Vitals/IOs Vital Signs Date Time Temp Pulse Resp B/P Pulse Ox O2 Delivery O2 Flow Rate FiO2 12/26/16 06:02 97.9 89 18 135/96 97 12/23/16 10:50 Room Air Assessment & Plan Problem List: (1) Schizoaffective disorder ICD Code: F25.9 Assessment & Plan Titrate Seroquel to 450 mg at bedtime. Biotene as needed for dry mouth. Mechanical soft diet. Bowel regimen. Continue to monitor on the inpatient unit. Continue other medications and care as ordered. Justification for Cont. Inpt. Medication changes in process. Discharge Planning Pending psychiatric stabilization. Request HC Surrog/Guard Advoc?: Yes Problem Qualifiers (1) Schizoaffective disorder: Qualified Code: F25.0 - Schizoaffective disorder, bipolar type Masoud Bradshaw MD Dec 26, 2016 15:43
[2016-12-26] MEDS ORDERED: BISACODYL EC 5 MG TABEC PO PRN (15:45)
[2016-12-26] MEDS ORDERED: cloNIDine HCL 0.1 MG TAB PO PRN (17:00)
[2016-12-26 18:00] VITALS: BP 130/87; PULSE 87; RESP 18; TEMP 97.9; O2SAT 100
[2016-12-26] MEDS ORDERED: QUEtiapine FUMARATE 200 MG TAB PO SCH (21:00)
[2016-12-26] MEDS: DOCUSATE SODIUM 100 MG CAP PO SCH (21:00)
[2016-12-26] MEDS: BENZTROPINE MESYLATE 1 MG TAB PO SCH (21:27)
[2016-12-27] MEDS: CARBOXYMETHYLCELL SOD 0.5% OPTH SOLN 15 ML BTL EACH EYE SCH ×4 (06:00→17:42)
[2016-12-27 06:11] VITALS: BP 125/87; PULSE 80; RESP 18; TEMP 98.1; O2SAT 93
[2016-12-27] MEDS: DOCUSATE SODIUM 100 MG CAP PO SCH ×2 (08:56→20:15)
[2016-12-27] MEDS: amLODIPine BESYLATE 5 MG TAB PO SCH (08:57)
[2016-12-27] MEDS: LITHIUM CARBONATE 450 MG CONTROLLED RELEASE TAB PO SCH ×2 (08:57→20:14)
[2016-12-27] MEDS: METOPROLOL TARTRATE 50 MG TAB PO SCH ×2 (08:57→20:15)
--- NOTE | 2016-12-27 10:32 | HHI.PR ---
Subjective Remarks Follow-up visit HTN, bipolar disorder. Patient seen and examined today. Reports he continues to have visual and auditory hallucinations. But states he is feeling better. Denies pain and discomfort. Denies SOB/ dyspnea. Denies chest pain, palpitations, headaches, dizziness. Denies fevers, chills, n/v/d. Denies dysuria. Objective Vitals Vital Signs Date Time Temp Pulse Resp B/P Pulse Ox O2 Delivery O2 Flow Rate FiO2 12/27/16 06:11 98.1 80 18 125/87 93 12/26/16 18:00 97.9 87 18 130/87 100 I/O 12/26/16 12/26/16 12/26/16 12/27/16 12/27/16 12/27/16 06:59 14:59 22:59 06:59 14:59 22:59 Intake Total 240 ml 240 ml Balance 240 ml 240 ml Intake Oral 240 ml 240 ml Result Diagram: 12/26/16 0815 Objective Remarks GENERAL: This is a well-nourished, well-developed patient, in no apparent distress. SKIN: Warm and dry. HEENT: Normocephalic. Pupils equal round and reactive. Nose without bleeding. Airway patent. NECK: Trachea midline. CARDIOVASCULAR: Regular rate and rhythm without murmurs, gallops, or rubs. RESPIRATORY: Clear to auscultation. Breath sounds equal bilaterally. No wheezes , rales, or rhonchi. GASTROINTESTINAL: Abdomen soft, non-tender, nondistended. Bowel Sounds normoactive x4. MUSCULOSKELETAL: Extremities without clubbing, cyanosis, or edema. NEUROLOGICAL: Awake and alert. Appears depressed. No focal neuro deficit. Moves all extremities. Normal speech. A/P Problem List: (1) Bipolar disorder, manic ICD Code: F31.10 Status: Chronic (2) Schizophrenia, paranoid, chronic ICD Code: F20.0 Status: Chronic Assessment and Plan 51-year-old male with past medical history which includes hypertension, bipolar disorder and schizophrenia initially presented to the emergency department with complaints of not being able sleep for the past 3 days. Bipolar Insomnia Management per psychiatric team Elevated creatinine-appears chronic Patient appears her baseline kidney injury with creatinine at baseline around 1.1-1.2 Encourage by mouth hydration Avoid nephrotoxins Improved. Hypertension chronic Resume patient's home medications include metoprolol and Norvasc Monitor blood pressure trend Controlled Dry eye bilaterally Refresh Tears every 6 hours DVT prophylaxis patient is ambulatory and low risk Full code Discussed with patient, nursing, Dr. Malika Blankenship from Hospitalist standpoint. We will sign off. Reconsult as needed. Ave Vanessa Dec 27, 2016 10:32
--- NOTE | 2016-12-27 10:37 | HHI.PYPN ---
Subjective Remarks Patient seen and examined with counselor and nurse. Chart reviewed. Case discussed with nursing staff. No behavioral issues overnight. On my examination today, patient is somewhat fretful but vague. He seems more fixated on somatic complaints like dry mouth and constipation than on psychiatric issues. Indeed, he seems to have a dearth of psychiatric symptoms presently. He denies SI/HI/AVH. He does complain of ongoing subjectively poor sleep. Slept 7 hours per charting. No new side effects from medications. No other physical complaints. Review of Systems ROS Limitations: Poor Historian Except as stated in HPI: all other systems reviewed are Neg Objective Alert: Yes [place]: Person, Place (at least) Mood: Calm Affect: Blunted Memory Intact: Comment (fair) Hallucinations: Other (Denies AVH) Delusions: No Delusion Type: Other (No delusional material) Suicidal: Ideation (Denies SI) Homicidal: Ideation (Denies HI) Insight/Judgment Poor Remarks No motor abnormalities noted. Grooming and hygiene fair. Thought process linear but a little perseverative on the somatic issues as noted above. Labs Labs reviewed. Vitals/IOs Vital Signs Date Time Temp Pulse Resp B/P Pulse Ox O2 Delivery O2 Flow Rate FiO2 12/27/16 06:11 98.1 80 18 125/87 93 12/23/16 10:50 Room Air Intake and Output 12/26/16 12/26/16 12/26/16 07:59 15:59 23:59 Intake Total 240 ml Balance 240 ml Assessment & Plan Problem List: (1) Schizoaffective disorder ICD Code: F25.9 Assessment & Plan Titrate Seroquel to 500mg qHS to help with sleep. Continue psychotropics as ordered otherwise. Check a lithium level in the morning. I will ask the nurse to administer the Dulcolax in hopes of giving patient a satisfactory BM. Continue to monitor on the unit. Continue other medications and care as ordered. Justification for Cont. Inpt. Med changes. Discharge Planning Possible discharge tomorrow, . Request HC Surrog/Guard Advoc?: Yes Problem Qualifiers (1) Schizoaffective disorder: Qualified Code: F25.0 - Schizoaffective disorder, bipolar type Masoud Bradshaw MD Dec 27, 2016 10:37
[2016-12-27] MEDS ORDERED: PILL SPLITTER OTHER PRN (15:30)
[2016-12-27 19:16] VITALS: BP 126/88; PULSE 16; RESP 16; TEMP 98.1; O2SAT 99
[2016-12-27] MEDS: BENZTROPINE MESYLATE 1 MG TAB PO SCH (20:14)
[2016-12-27] MEDS: QUEtiapine FUMARATE 200 MG TAB PO SCH (20:14)
[2016-12-28] MEDS: LORazepam 1 MG TAB PO PRN (03:08)
[2016-12-28] MEDS: CARBOXYMETHYLCELL SOD 0.5% OPTH SOLN 15 ML BTL EACH EYE SCH ×4 (06:00→17:03)
[2016-12-28 06:14] VITALS: BP 129/93; PULSE 80; RESP 18; TEMP 97.7; O2SAT 99
[2016-12-28] MEDS: DOCUSATE SODIUM 100 MG CAP PO SCH ×2 (08:37→21:20)
[2016-12-28] MEDS: LITHIUM CARBONATE 450 MG CONTROLLED RELEASE TAB PO SCH ×2 (08:37→21:20)
[2016-12-28] MEDS: amLODIPine BESYLATE 5 MG TAB PO SCH (08:37)
[2016-12-28] MEDS: METOPROLOL TARTRATE 50 MG TAB PO SCH ×2 (08:38→21:20)
--- NOTE | 2016-12-28 12:32 | HHI.PYPN ---
Subjective Remarks Patient seen and examined with counselor. Chart reviewed. Case discussed with nursing staff. Patient noted to be fairly paranoid and flat. On my exam, patient remains quite flat and internally preoccupied. He admits to auditory hallucinations "every once in a while" although he does not describe them in any detail. I am on the fence about whether patient is ready for discharge. He followed for a long time in Dr. García's clinic, and I asked Dr. García to meet with patient briefly, and he feels patient is not yet at his baseline. Denies side effects from medications. No physical complaints. Review of Systems ROS Limitations: Psychotic, Poor Historian Except as stated in HPI: all other systems reviewed are Neg Objective Alert: Yes [place]: Person, Place Mood: Calm Affect: Flat Memory Intact: Comment (fair) Hallucinations: Auditory ("Every once in a while." ) Delusions: Yes Delusion Type: Other (somewhat guarded) Suicidal: Ideation (Denies SI) Homicidal: Ideation (Denies HI) Insight/Judgment Poor Remarks No motor abnormalities noted. Grooming and hygiene fair. Labs Test 12/28/16 06:48 [place] Level 0.9 MEQ/L Labs reviewed. [place] level within the therapeutic range. Vitals/IOs Vital Signs Date Time Temp Pulse Resp B/P Pulse Ox O2 Delivery O2 Flow Rate FiO2 12/28/16 06:14 97.7 80 18 129/93 99 Intake and Output 12/27/16 12/27/16 12/27/16 07:59 15:59 23:59 Intake Total 240 ml Balance 240 ml Assessment & Plan Problem List: (1) Schizoaffective disorder ICD Code: F25.9 Assessment & Plan Add morning dose of Seroquel to target psychosis: 100/500mg. Continue lithium as ordered. Continue to monitor on inpatient unit. Continue other medications and care as ordered. Justification for Cont. Inpt. Medication changes in process. High risk for decompensation in less restrictive environment. Discharge Planning Possible discharge after the weekend. Request HC Surrog/Guard Advoc?: Yes Problem Qualifiers (1) Schizoaffective disorder: Qualified Code: F25.0 - Schizoaffective disorder, bipolar type Masoud Bradshaw MD Dec 28, 2016 12:32
[2016-12-28 16:30] VITALS: BP 168/94; PULSE 77; RESP 18; TEMP 98.2; O2SAT 99
[2016-12-28] MEDS: BENZTROPINE MESYLATE 1 MG TAB PO SCH (21:19)
[2016-12-28] MEDS: QUEtiapine FUMARATE 200 MG TAB PO SCH (21:20)
[2016-12-29 05:43] VITALS: BP 146/90; PULSE 78; RESP 17; TEMP 97.9; O2SAT 100
[2016-12-29] MEDS: CARBOXYMETHYLCELL SOD 0.5% OPTH SOLN 15 ML BTL EACH EYE SCH ×4 (06:00→17:45)
[2016-12-29] MEDS: DOCUSATE SODIUM 100 MG CAP PO SCH ×2 (08:31→20:05)
[2016-12-29] MEDS: METOPROLOL TARTRATE 50 MG TAB PO SCH ×2 (08:31→20:04)
[2016-12-29] MEDS: LITHIUM CARBONATE 450 MG CONTROLLED RELEASE TAB PO SCH ×2 (08:31→20:05)
[2016-12-29] MEDS: amLODIPine BESYLATE 5 MG TAB PO SCH (08:31)
[2016-12-29] MEDS ORDERED: QUEtiapine FUMARATE 100 MG TAB PO SCH (09:00)
--- NOTE | 2016-12-29 11:50 | HHI.PYPN ---
Subjective Remarks Patient seen and examined. Chart reviewed. Case discussed with nursing staff who reports that the patient slept well and was noted to be laughing and social on the unit. At the time of my evaluation, he is in his room and his demeanor is somewhat dour. He says that he feels groggy, and he feels like this may be related to Seroquel added during the day. Denies SI/HI/AVH. Denies side effects from meds otherwise. No physical complaints. Review of Systems ROS Limitations: Poor Historian Except as stated in HPI: all other systems reviewed are Neg Objective Alert: Yes [place]: Person, Place Mood: Calm (a little dyphoric) Affect: Flat Memory Intact: Comment (fair) Hallucinations: Other (Denies AVH) Delusions: No Delusion Type: Other (No delusions) Suicidal: Ideation (Denies SI) Homicidal: Ideation (Denies HI) Insight/Judgment Poor Remarks No motor abnormalities noted. TP linear. Labs Labs reviewed. Vitals/IOs Vital Signs Date Time Temp Pulse Resp B/P Pulse Ox O2 Delivery O2 Flow Rate FiO2 12/29/16 05:43 97.9 78 17 146/90 100 Assessment & Plan Problem List: (1) Schizoaffective disorder ICD Code: F25.9 Assessment & Plan Taper morning dose of Seroquel to 50mg to manage reported grogginess. Continue other psychotropics as ordered. Continue to monitor on inpatient unit. Continue other care as ordered. Justification for Cont. Inpt. Med changes Discharge Planning Anticipate discharge Sunday Request HC Surrog/Guard Advoc?: Yes Problem Qualifiers (1) Schizoaffective disorder: Qualified Code: F25.0 - Schizoaffective disorder, bipolar type Masoud Bradshaw MD Dec 29, 2016 11:50
[2016-12-29 17:27] VITALS: BP 151/79; PULSE 81; RESP 17; TEMP 98.4; O2SAT 99
[2016-12-29] MEDS: BENZTROPINE MESYLATE 1 MG TAB PO SCH (20:04)
[2016-12-29] MEDS: QUEtiapine FUMARATE 200 MG TAB PO SCH (20:04)
[2016-12-30 05:59] VITALS: BP 129/79; PULSE 91; RESP 17; TEMP 98; O2SAT 98
[2016-12-30] MEDS: CARBOXYMETHYLCELL SOD 0.5% OPTH SOLN 15 ML BTL EACH EYE SCH ×4 (06:00→17:14)
[2016-12-30] MEDS: METOPROLOL TARTRATE 50 MG TAB PO SCH ×2 (09:22→21:57)
[2016-12-30] MEDS: amLODIPine BESYLATE 5 MG TAB PO SCH (09:22)
[2016-12-30] MEDS: LITHIUM CARBONATE 450 MG CONTROLLED RELEASE TAB PO SCH ×2 (09:22→21:59)
[2016-12-30] MEDS: QUEtiapine FUMARATE 25 MG TAB PO SCH (09:22)
[2016-12-30] MEDS: DOCUSATE SODIUM 100 MG CAP PO SCH ×2 (09:22→21:59)
[2016-12-30] MEDS: LORazepam 1 MG TAB PO PRN (09:25)
--- NOTE | 2016-12-30 16:20 | HHI.PYPN ---
Subjective Remarks Pt seen and discussed with staff. Remains internally preoccupied and intrusive with bizarre behavior. H believes it is 2006 and that Edward Cruz is president. He is compliant with medications and denies side effects. NO SI/HI Objective Alert: Yes [place]: Person, Place Mood: Calm Affect: Flat Memory Intact: Comment (fair) Hallucinations: Auditory, Other (appears to be responding to internal stimulation) Delusions: No Delusion Type: Other (No delusions) Suicidal: Ideation (Denies SI) Homicidal: Ideation (Denies HI) Insight/Judgment poor Vitals/IOs Vital Signs Date Time Temp Pulse Resp B/P Pulse Ox O2 Delivery O2 Flow Rate FiO2 12/30/16 05:59 98.0 91 17 129/79 98 Assessment & Plan Problem List: (1) Schizoaffective disorder ICD Code: F25.9 Assessment & Plan Continue seroquel titration to target psychosis. Estimated LOS: days Justification for Cont. Inpt. psychosis Request HC Surrog/Guard Advoc?: Yes Problem Qualifiers (1) Schizoaffective disorder: Qualified Code: F25.0 - Schizoaffective disorder, bipolar type Mari Akers MD Dec 30, 2016 16:20
[2016-12-30 18:36] VITALS: BP 132/88; PULSE 95; RESP 20; TEMP 97.5; O2SAT 99
[2016-12-30] MEDS: QUEtiapine FUMARATE 200 MG TAB PO SCH (21:58)
[2016-12-30] MEDS: BENZTROPINE MESYLATE 1 MG TAB PO SCH (21:59)
[2016-12-31] MEDS: CARBOXYMETHYLCELL SOD 0.5% OPTH SOLN 15 ML BTL EACH EYE SCH ×5 (06:00→23:41)
[2016-12-31 06:07] VITALS: BP 116/83; PULSE 83; RESP 16; TEMP 98.2; O2SAT 100
[2016-12-31] MEDS: METOPROLOL TARTRATE 50 MG TAB PO SCH ×2 (08:26→20:29)
[2016-12-31] MEDS: QUEtiapine FUMARATE 25 MG TAB PO SCH (08:26)
[2016-12-31] MEDS: amLODIPine BESYLATE 5 MG TAB PO SCH (08:26)
[2016-12-31] MEDS: DOCUSATE SODIUM 100 MG CAP PO SCH ×2 (08:26→20:30)
[2016-12-31] MEDS: LITHIUM CARBONATE 450 MG CONTROLLED RELEASE TAB PO SCH ×2 (08:26→20:29)
--- NOTE | 2016-12-31 14:59 | HHI.PYPN ---
Subjective Remarks Pt seen and discussed with staff. He remains psychotic with thought blocking, but has been less bizarre today in behaviors. He is compliant with medications and denies side effects. No SI/HI Objective Alert: Yes [place]: Person, Place Mood: Calm Affect: Flat Memory Intact: Comment (fair) Hallucinations: Auditory, Other (appears to be responding to internal stimulation) Delusions: No Delusion Type: Other (No delusions) Suicidal: Ideation (Denies SI) Homicidal: Ideation (Denies HI) Insight/Judgment poor Vitals/IOs Vital Signs Date Time Temp Pulse Resp B/P Pulse Ox O2 Delivery O2 Flow Rate FiO2 12/31/16 06:07 98.2 83 16 116/83 100 Assessment & Plan Problem List: (1) Schizoaffective disorder ICD Code: F25.9 Assessment & Plan Continue current tx plan Estimated LOS: days Justification for Cont. Inpt. impairments in reality testing Request HC Surrog/Guard Advoc?: Yes Problem Qualifiers (1) Schizoaffective disorder: Qualified Code: F25.0 - Schizoaffective disorder, bipolar type Mari Akers MD Dec 31, 2016 14:59
[2016-12-31 16:48] VITALS: BP 127/88; PULSE 82; RESP 18; TEMP 98.7; O2SAT 100
[2016-12-31] MEDS: BENZTROPINE MESYLATE 1 MG TAB PO SCH (20:30)
[2016-12-31] MEDS: QUEtiapine FUMARATE 200 MG TAB PO SCH (20:31)
[2017-01-01] MEDS: CARBOXYMETHYLCELL SOD 0.5% OPTH SOLN 15 ML BTL EACH EYE SCH ×4 (06:00→23:31)
[2017-01-01 06:20] VITALS: BP 94/59; PULSE 69; RESP 18; TEMP 97.6; O2SAT 99
[2017-01-01] MEDS: QUEtiapine FUMARATE 25 MG TAB PO SCH (08:48)
[2017-01-01] MEDS: METOPROLOL TARTRATE 50 MG TAB PO SCH ×2 (08:49→20:24)
[2017-01-01] MEDS: DOCUSATE SODIUM 100 MG CAP PO SCH ×2 (08:49→20:24)
[2017-01-01] MEDS: amLODIPine BESYLATE 5 MG TAB PO SCH (08:49)
[2017-01-01] MEDS: LITHIUM CARBONATE 450 MG CONTROLLED RELEASE TAB PO SCH ×2 (08:49→20:24)
--- NOTE | 2017-01-01 10:20 | HHI.PYPN ---
Subjective Remarks Patient seen and examined with nurse. Chart reviewed. Case discussed with nursing staff. On my examination today, I find the patient sitting in the sun on the basketball court. He seems unengaged with his surroundings and even allows himself to get hit with a basketball that should have been easily dodged. On exam, patient presents as flat, delayed with thought blocking. No SI/HI voiced. No side effects from medications. No physical complaints. Review of Systems ROS Limitations: Psychotic, Poor Historian Except as stated in HPI: all other systems reviewed are Neg Objective Alert: Yes [place]: Person, Place Mood: Calm Affect: Flat (quite flat) Memory Intact: Comment (Not formally assessed today) Hallucinations: Other (No AVH reported but appears int stim) Delusions: No Delusion Type: Other (None elicited) Suicidal: Ideation (No SI) Homicidal: Ideation (No HI) Insight/Judgment Poor Remarks No motor abnormalities noted. No signs of injury or trauma where he got hit with the basketball. TP exceedingly slow with thought blocking. Grooming and hygiene fair. Labs Labs reviewed. Vitals/IOs Vital Signs Date Time Temp Pulse Resp B/P Pulse Ox O2 Delivery O2 Flow Rate FiO2 01/01/17 06:20 97.6 69 18 94/59 99 Assessment & Plan Problem List: (1) Schizoaffective disorder ICD Code: F25.9 Assessment & Plan If anything, patient seems somewhat worse today than before the weekend with respect to his psychosis. I will check an updated CBC/CMP to rule out obvious medical causes as well as a spot lithium level, although the patient has no stigmata of lithium toxicity at present. I will taper Seroquel to 50/400mg as it is possible the patient is simply overmedicated and this is what is giving the appearance of flattened affect and slowed TP/thought blocking. If tapering Seroquel is not successful, may need to consider an alternative antipsychotic. Continue to monitor on inpatient unit. Continue other medications and care as ordered. Justification for Cont. Inpt. Impairment in reality construction. Medication changes in process. High risk for decompensation in less restrictive environment. Discharge Planning Pending psychiatric stabilization. Request HC Surrog/Guard Advoc?: Yes Problem Qualifiers (1) Schizoaffective disorder: Qualified Code: F25.0 - Schizoaffective disorder, bipolar type Masoud Bradshaw MD Jan 01, 2017 10:20
[2017-01-01 15:57] VITALS: BP 131/85; PULSE 82; RESP 18; TEMP 98.2; O2SAT 99
[2017-01-01 18:37] LABS: HEMATOCRIT 43.5 % (39.0-51.0); MEAN CELL VOLUME 82.6 FL (80.0-100.0); MEAN CORPUSCULAR HEMOGLOBIN 27.2 PG (27.0-34.0); PLATELET COUNT 275 TH/MM3 (150-450); RED BLOOD COUNT 5.27 MIL/MM3 (4.50-5.90); RED CELL DISTRIBUTION WIDTH 14.4 % (11.6-17.2); WHITE BLOOD COUNT 11.5 TH/MM3 (4.0-11.0)
[2017-01-01 18:39] LABS: HEMO FLAGS AUTO DIFF
[2017-01-01 19:00] LABS: ANION GAP 10 MEQ/L (5-15); AST (GOT) 8 U/L (15-37); BICARBONATE 24.8 MEQ/L (21.0-32.0); BLOOD UREA NITROGEN 18 MG/DL (7-18); CHLORIDE 103 MEQ/L (98-107); GLOMERULAR FILTRATION RATE 44 ML/MIN (>89); POTASSIUM 3.8 MEQ/L (3.5-5.1); SODIUM (NA) 138 MEQ/L (136-145)
[2017-01-01 19:01] LABS: ALT (GPT) 20 U/L (12-78)
[2017-01-01 19:03] LABS: ALKALINE PHOSPHATASE 121 U/L (45-117); TOTAL BILIRUBIN ADULT 0.3 MG/DL (0.2-1.0)
[2017-01-01 19:08] LABS: BANDS 1 % (0-6); NEUTROPHIL # MANUAL DIFF 9.2 TH/MM3 (1.8-7.7); OVALOCYTES 1+ (NORMAL); PLATELET ESTIMATE SMEAR NORMAL (NORMAL); PLATELET MORPHOLOGY NORMAL (NORMAL); POLYS (SEG NEUTROPHILS) 79 % (16-70); SCAN/DIFF FINAL DIFF MANUAL; WBC DIFF SAMPLE 100
[2017-01-01] MEDS: BENZTROPINE MESYLATE 1 MG TAB PO SCH (20:24)
[2017-01-01 21:00] VITALS: BP 129/90; PULSE 100; RESP 20
[2017-01-01] MEDS ORDERED: QUEtiapine FUMARATE 200 MG TAB PO SCH (21:00)
[2017-01-02 05:29] VITALS: BP 112/66; PULSE 72; RESP 17; TEMP 98.5; O2SAT 99
[2017-01-02] MEDS: CARBOXYMETHYLCELL SOD 0.5% OPTH SOLN 15 ML BTL EACH EYE SCH ×3 (06:00→18:00)
[2017-01-02] MEDS: METOPROLOL TARTRATE 50 MG TAB PO SCH ×2 (08:49→21:24)
[2017-01-02] MEDS: DOCUSATE SODIUM 100 MG CAP PO SCH ×2 (08:49→21:23)
[2017-01-02] MEDS: QUEtiapine FUMARATE 25 MG TAB PO SCH (08:50)
[2017-01-02] MEDS: amLODIPine BESYLATE 5 MG TAB PO SCH (08:50)
[2017-01-02] MEDS: LITHIUM CARBONATE 450 MG CONTROLLED RELEASE TAB PO SCH ×2 (08:50→21:24)
--- NOTE | 2017-01-02 10:55 | HHI.PR ---
Subjective Remarks Reconsulted for elevated Cr . Patient is in the chair, eating. Denies any chest pain or sob. Encouraged PO fluids. No urinary complaints. No fever or chills. Objective Vitals Vital Signs Date Time Temp Pulse Resp B/P Pulse Ox O2 Delivery O2 Flow Rate FiO2 01/02/17 05:29 98.5 72 17 112/66 99 01/01/17 21:00 100 20 129/90 01/01/17 15:57 98.2 82 18 131/85 99 Result Diagram: 01/01/17 1748 01/01/17 1748 Objective Remarks GENERAL: This is a well-nourished, well-developed patient, in no apparent distress. EYES: Extraocular motions intact. No scleral icterus. No drainage. Right lower lid mild erythema-bilateral eyes appear dry, improving. CARDIOVASCULAR: Regular rate and rhythm RESPIRATORY: Clear to auscultation. Breath sounds equal bilaterally. No wheezes , rales, or rhonchi. GASTROINTESTINAL: Abdomen soft, non-tender, nondistended. No guarding. MUSCULOSKELETAL: Extremities without clubbing, cyanosis, or edema. No joint tenderness, effusion, or edema noted. No calf tenderness. Negative Homans sign bilaterally. NEUROLOGICAL: Awake and alert. No focal deficits appreciated. Motor and sensory grossly within normal limits. Five out of 5 muscle strength in all muscle groups. Normal speech. A/P Problem List: (1) Bipolar disorder, manic ICD Code: F31.10 Status: Chronic (2) Schizophrenia, paranoid, chronic ICD Code: F20.0 Status: Chronic Assessment and Plan 51-year-old male with past medical history which includes hypertension, bipolar disorder and schizophrenia initially presented to the emergency department with complaints of not being able sleep for the past 3 days. Bipolar Insomnia Management per psychiatric team PARVEEN on CKD2. Elevated creatinine-appears chronic Patient appears her baseline kidney injury with creatinine at baseline around 1.1-1.2. Noted Cr 1.6 01/01. repeat labs pending. Encourage by mouth hydration Recheck in AM Avoid nephrotoxins Will order UA and also will order US kidney Hypertension chronic Resume patient's home medications include metoprolol and Norvasc Monitor blood pressure trend Dry eye bilaterally Refresh Tears every 6 hours DVT prophylaxis patient is ambulatory and low risk Discussed with nursing and patient Appears stable. Hospitalist will sign off , reconsult as need Nathalia Daly MD Jan 02, 2017 10:55
--- NOTE | 2017-01-02 11:46 | PD.TTN ---
Patient Problems 1. Discharge planning 2. Medication compliance 3. Knowledge deficit 4. Lack of coping skills Progress Toward Goals Provider Input: Dr. Bradshaw had his treatment team meeting to discuss treatment plan, medication and discharge. Per Dr. Brasdhaw patient will remain on unit. Patient continues to present confused and disorganized. Nurse Input: Per patient's nurse Tamra Lord RN patient is flat, paranoid and seclusive. Patient stares intensely at others including this advertising copy writer. Thought blocking, Patient will follow directions. Psych Therapist Input: Patient presented preoccupied, thought blocking, paranoid, depressed, affect flat. Patient is confused and not aware of day/time, place or situation. Patient made intense eye contact. Patient reports no suicidal or homicidal ideation. Patient's speech is clear, disorganized and pressured. Patient is medication compliant. Once discharged patient will return home. Occupational Therapist Input: Group Specialist Librado Zapien reports patient regularly attends groups. Patient seems confused and requires redirection. Yulissa Banks [facility] Jan 02, 2017 11:46
--- NOTE | 2017-01-02 14:40 | HHI.PYPN ---
Subjective Remarks Patient seen and examined. Chart reviewed. Case discussed in treatment team. On my exam, patient presents as fairly flat. He is perhaps a little more spontaneous today versus yesterday, but his speech and thoughts seem more disorganized. He endorses vague AH and appears internally stimulated. Denies SI or HI. Denies side effects from medications. Review of Systems ROS Limitations: Psychotic, Poor Historian Except as stated in HPI: all other systems reviewed are Neg Objective Alert: Yes [place]: Person, Place Mood: Calm Affect: Blunted Memory Intact: Comment (Not formally assessed today) Hallucinations: Auditory (vague, appears int stim) Delusions: No Delusion Type: Other (None elicited) Suicidal: Ideation (No SI) Homicidal: Ideation (No HI) Insight/Judgment Poor Remarks TP somewhat disorganized. Speech a little nonsensical at times. Grooming and hygiene fair. No motoric abnormalities appreciated. Labs Test 01/01/17 17:48 White Blood Count 11.5 TH/MM3 Red Blood Count 5.27 MIL/MM3 Hemoglobin 14.4 GM/DL Hematocrit 43.5 % Mean Corpuscular Volume 82.6 FL Mean Corpuscular Hemoglobin 27.2 PG Mean Corpuscular Hemoglobin 33.0 % Concent Red Cell Distribution Width 14.4 % Platelet Count 275 TH/MM3 Mean Platelet Volume 8.0 FL Neutrophils (%) (Auto) % Lymphocytes (%) (Auto) % Monocytes (%) (Auto) % Eosinophils (%) (Auto) % Basophils (%) (Auto) % Neutrophils # (Auto) TH/MM3 Lymphocytes # (Auto) TH/MM3 Monocytes # (Auto) TH/MM3 Eosinophils # (Auto) TH/MM3 Basophils # (Auto) TH/MM3 CBC Comment AUTO DIFF Differential Total Cells 100 Counted Neutrophils % (Manual) 79 % Band Neutrophils % 1 % Lymphocytes % 18 % Monocytes % 2 % Neutrophils # (Manual) 9.2 TH/MM3 Differential Comment FINAL DIFF MANUAL Platelet Estimate NORMAL Platelet Morphology Comment NORMAL Ovalocytes 1+ Sodium Level 138 MEQ/L Potassium Level 3.8 MEQ/L Chloride Level 103 MEQ/L Carbon Dioxide Level 24.8 MEQ/L Anion Gap 10 MEQ/L Blood Urea Nitrogen 18 MG/DL Creatinine 1.66 MG/DL Estimat Glomerular Filtration 44 ML/MIN Rate Random Glucose 161 MG/DL Calcium Level 10.9 MG/DL Total Bilirubin 0.3 MG/DL Aspartate Amino Transf 8 U/L (AST/SGOT) Alanine Aminotransferase 20 U/L (ALT/SGPT) Alkaline Phosphatase 121 U/L Total Protein 7.8 GM/DL Albumin 4.2 GM/DL [place] Level 1.3 MEQ/L Labs reviewed. Mild leukocytosis noted. GFR somewhat decreased. [place] level 1.3, but this was drawn as a spot level, not a trough level. Vitals/IOs Vital Signs Date Time Temp Pulse Resp B/P Pulse Ox O2 Delivery O2 Flow Rate FiO2 01/02/17 05:29 98.5 72 17 112/66 99 Assessment & Plan Problem List: (1) Schizoaffective disorder ICD Code: F25.9 Assessment & Plan Patient is somewhat more interactive today, but he also seems more disorganized. Although overmedication is still a possibility, I am growing concerned that he is experiencing further psychotic decompensation. He also has a mild leukocytosis and decreased GFR, and I will recheck CBC, BMP and lithium level in the morning and have consulted the hospitalist to evaluate these findings, as they may have some impact on his mental status. If patient is not improved tomorrow or is worse with respect to his thought disorder, we will likely need to add additional antipsychotic, either by titrating Seroquel or adding/substituting a different antipsychotic. Seroquel 50/300mg today. Continue other medications and care as ordered. Justification for Cont. Inpt. Impairment in reality construction. Medication changes and process. Possible complicating conditions. High risk for decompensation and less restrictive environment. Discharge Planning Pending psychiatric stabilization. Patient's mother to visit with the patient this evening, and I will be interested to hear her thoughts on the patient's condition relative to his chronic baseline. Request HC Surrog/Guard Advoc?: Yes Problem Qualifiers (1) Schizoaffective disorder: Qualified Code: F25.0 - Schizoaffective disorder, bipolar type Masoud Bradshaw MD Jan 02, 2017 14:40
[2017-01-02 15:24] VITALS: BP 121/96; PULSE 89; RESP 18; TEMP 98.5; O2SAT 100
[2017-01-02] MEDS: LORazepam 1 MG TAB PO PRN (18:24)
[2017-01-02] MEDS: QUEtiapine FUMARATE 300 MG TAB PO SCH (21:00)
[2017-01-02] MEDS: BENZTROPINE MESYLATE 1 MG TAB PO SCH (21:23)
--- NOTE | 2017-01-02 22:34 | RADRPT ---
EXAM DATE/TIME: 01/02/2017 20:39 [facility] COMPARISON: No previous studies available for comparison. INDICATIONS : Increased BUN/Creatinine. MEDICAL HISTORY : Hypertension. Bipolar disorder. Schizophrenia. SURGICAL HISTORY : Hernia repair. ENCOUNTER: Initial ACUITY: 1 day PAIN SCORE: 0/10 LOCATION: Bilateral flank MEASUREMENTS: RIGHT KIDNEY: 9.7 x 3.6 x 4.2 cm LEFT KIDNEY: 10.3 x 4.3 x 5.3 cm FINDINGS: RIGHT KIDNEY: Renal cortex is normal in thickness and echotexture. No hydronephrosis, stone, or mass. LEFT KIDNEY: Renal cortex is normal in thickness and echotexture. No hydronephrosis, stone, or mass. BLADDER: Within normal limits given the degree of distension. CONCLUSION: Asymmetric renal size. No evidence of hydronephrosis.. Orestes Starr MD on January 02, 2017 at 22:32 Board Certified Radiologist. This report was verified electronically.
[2017-01-03 05:35] VITALS: BP 124/75; PULSE 81; RESP 20; TEMP 97.7; O2SAT 97
[2017-01-03] MEDS: CARBOXYMETHYLCELL SOD 0.5% OPTH SOLN 15 ML BTL EACH EYE SCH ×4 (06:00→17:11)
[2017-01-03] MEDS: LITHIUM CARBONATE 450 MG CONTROLLED RELEASE TAB PO SCH ×2 (09:10→20:52)
[2017-01-03] MEDS: amLODIPine BESYLATE 5 MG TAB PO SCH (09:10)
[2017-01-03] MEDS: DOCUSATE SODIUM 100 MG CAP PO SCH ×2 (09:10→20:52)
[2017-01-03] MEDS: METOPROLOL TARTRATE 50 MG TAB PO SCH ×2 (09:10→20:56)
[2017-01-03] MEDS: QUEtiapine FUMARATE 25 MG TAB PO SCH (09:10)
[2017-01-03 11:13] LABS: BICARBONATE 25.1 MEQ/L (21.0-32.0); POTASSIUM 3.5 MEQ/L (3.5-5.1)
[2017-01-03 11:14] LABS: AUTOMATED NEUTROPHIL # 10.8 TH/MM3 (1.8-7.7); BASOPHIL # 0.1 TH/MM3 (0-0.2); BASOPHIL % 0.4 % (0.0-2.0); EOSINOPHIL # 0.2 TH/MM3 (0-0.4); EOSINOPHIL % 1.4 % (0.0-4.0); HEMATOCRIT 41.9 % (39.0-51.0); HEMO FLAGS DIFF FINAL; LYMPH % 12.2 % (9.0-44.0); LYMPHOCYTE # 1.7 TH/MM3 (1.0-4.8); MEAN CELL VOLUME 82.5 FL (80.0-100.0); MEAN CORPUSCULAR HEMOGLOBIN 27.6 PG (27.0-34.0); MEAN CORPUSCULAR HGB CONC 33.5 % (32.0-36.0); PLATELET COUNT 269 TH/MM3 (150-450); RED BLOOD COUNT 5.08 MIL/MM3 (4.50-5.90); RED CELL DISTRIBUTION WIDTH 14.1 % (11.6-17.2); WHITE BLOOD COUNT 13.6 TH/MM3 (4.0-11.0)
--- NOTE | 2017-01-03 14:13 | RADRPT ---
EXAM DATE/TIME: 01/03/2017 13:14 [facility] COMPARISON: No previous studies available for comparison. INDICATIONS : Obstruction, constipation MEDICAL HISTORY : hx of inguinal hernia as a child SURGICAL HISTORY : None. ENCOUNTER: Initial ACUITY: 1 day PAIN SCORE: 0/10 LOCATION: Bilateral abdomen FINDINGS: Examination is very limited due to patient's body habitus. There are apparently minimally prominent l oops of small bowel in the mid abdomen. No gross dilated loops of bowel are visualized. Evaluation fo r free air pneumatosis is not possible. No gross abnormal calcifications. CONCLUSION: 1. Very limited examination due to patient's body habitus. 2. Questionably minimally prominent small bowel loops in the mid abdomen which may reflect mild adyna adwoa ileus or developing partial small bowel obstruction. Andrea Hensley MD on January 03, 2017 at 14:06 Board Certified Radiologist. This report was verified electronically.
--- NOTE | 2017-01-03 15:26 | HHI.PYPN ---
Subjective Remarks Patient seen and examined. Chart reviewed. Case discussed with nursing staff who reports patient has not had a BM in several days and notes abdomen somewhat more distended. I have obtained urgent abdominal XR, results below. On my examination today, patient is more interactive but remains quite disorganized. Affect is flat. He denies AVH but appears internally stimulated. Denies side effects from medications. No complaints of pain or discomfort, but he is too disorganized at present to give a good history. Review of Systems ROS Limitations: Psychotic, Poor Historian Except as stated in HPI: all other systems reviewed are Neg Objective Alert: Yes [place]: Person, Place Mood: Calm Affect: Other (more reactive) Memory Intact: Comment (Not formally assessed today) Hallucinations: Other (Denies AVH but appears int stim) Delusions: No Delusion Type: Other (None elicited) Suicidal: Ideation (No SI) Homicidal: Ideation (No HI) Insight/Judgment Poor Remarks TP disorganized. Speech rambling. Grooming and hygiene fair. Labs Test 01/03/17 09:26 White Blood Count 13.6 TH/MM3 Red Blood Count 5.08 MIL/MM3 Hemoglobin 14.0 GM/DL Hematocrit 41.9 % Mean Corpuscular Volume 82.5 FL Mean Corpuscular Hemoglobin 27.6 PG Mean Corpuscular Hemoglobin 33.5 % Concent Red Cell Distribution Width 14.1 % Platelet Count 269 TH/MM3 Mean Platelet Volume 8.2 FL Neutrophils (%) (Auto) 79.0 % Lymphocytes (%) (Auto) 12.2 % Monocytes (%) (Auto) 7.0 % Eosinophils (%) (Auto) 1.4 % Basophils (%) (Auto) 0.4 % Neutrophils # (Auto) 10.8 TH/MM3 Lymphocytes # (Auto) 1.7 TH/MM3 Monocytes # (Auto) 0.9 TH/MM3 Eosinophils # (Auto) 0.2 TH/MM3 Basophils # (Auto) 0.1 TH/MM3 CBC Comment DIFF FINAL Differential Comment Sodium Level 140 MEQ/L Potassium Level 3.5 MEQ/L Chloride Level 106 MEQ/L Carbon Dioxide Level 25.1 MEQ/L Anion Gap 9 MEQ/L Blood Urea Nitrogen 19 MG/DL Creatinine 1.46 MG/DL Estimat Glomerular Filtration 51 ML/MIN Rate Random Glucose 106 MG/DL Calcium Level 10.9 MG/DL [place] Level 1.2 MEQ/L Labs reviewed. Increasing WBCs. Roxie level was drawn after morning lithium administration and so is probably once again spuriously high. Last Impressions Abdomen X-Ray 01/03/17 0000 Signed Impressions: Service Date/Time: Tuesday, January 03, 2017 13:14 - CONCLUSION: 1. Very limited examination due to patient's body habitus. 2. Questionably minimally prominent small bowel loops in the mid abdomen which may reflect mild adynamic ileus or developing partial small bowel obstruction. Andrea Hensley MD Renal Ultrasound 01/02/17 0000 Signed Impressions: Service Date/Time: Monday, January 02, 2017 20:39 - CONCLUSION: Asymmetric renal size. No evidence of hydronephrosis.. Orestes Starr MD Vitals/IOs Vital Signs Date Time Temp Pulse Resp B/P Pulse Ox O2 Delivery O2 Flow Rate FiO2 01/03/17 05:35 97.7 81 20 124/75 97 Assessment & Plan Problem List: (1) Schizoaffective disorder Assessment & Plan: Rule out component of delirium due to general medical condition ICD Code: F25.9 Assessment & Plan Concern for possible small bowel obstruction. Current mental status may be related to psychosis but also may be related to delirium from medical condition. Stat consult to the hospitalist. I have made pt NPO and spoken with PA from hospitalist team. Hospitalist will come assess patient presently, defer further management of this problem to hospitalist team. Psych meds on hold as part of strict NPO pending hospitalist assessment. Counselor has spoken with mother who reports patient has done well with Invega added to current regimen. We might consider adding this agent once medical issues have been addressed. Continue to monitor on the inpatient psychiatric unit for now. Continue other medications and care as ordered. Justification for Cont. Inpt. Complicating condition. Impairment in reality construction. High risk for decompensation and less restrictive environment. Discharge Planning Pending psychiatric stabilization. Request HC Surrog/Guard Advoc?: Yes Problem Qualifiers (1) Schizoaffective disorder: Qualified Code: F25.0 - Schizoaffective disorder, bipolar type Masoud Bradshaw MD Jan 03, 2017 15:26
[2017-01-03] MEDS ORDERED: LACTULOSE SYRUP 20 GM/30 ML CUP PO PRN (15:45)
[2017-01-03] MEDS ORDERED: SENNOSIDES 8.6 MG TAB PO PRN (15:45)
[2017-01-03] MEDS ORDERED: BISACODYL 10 MG SUPP RECTAL PRN (15:45)
[2017-01-03] MEDS ORDERED: BISACODYL 10 MG SUPP RECTAL ONE (15:45)
[2017-01-03] MEDS ORDERED: MAGNESIUM HYDROXIDE SUSP 30 ML CUP PO PRN (15:45)
[2017-01-03] MEDS ORDERED: MAGNESIUM CITRATE SOLN 300 ML BTL PO ONE (16:45)
--- NOTE | 2017-01-03 16:45 | HHI.PR ---
Subjective Remarks Follow-up on patient with elevated creatinine. Patient seen and examined today. Per patient, he has not had a bowel movement since he was admitted. KUB ordered by primary team revealing mild adynamic ileus or developing partial small bowel obstruction. Patient denies any acute abdominal complaints. He denies any nausea or vomiting. Denies any abdominal pain. Denies any dysuria or hematuria. Objective Vitals Vital Signs Date Time Temp Pulse Resp B/P Pulse Ox O2 Delivery O2 Flow Rate FiO2 01/03/17 05:35 97.7 81 20 124/75 97 Result Diagram: 01/03/1792501/03/17925 [facility] Last Impressions Abdomen X-Ray 01/03/17 0000 Signed Impressions: Service Date/Time: Tuesday, January 03, 2017 13:14 - CONCLUSION: 1. Very limited examination due to patient's body habitus. 2. Questionably minimally prominent small bowel loops in the mid abdomen which may reflect mild adynamic ileus or developing partial small bowel obstruction. Andrea Hensley MD Renal Ultrasound 01/02/17 0000 Signed Impressions: Service Date/Time: Monday, January 02, 2017 20:39 - CONCLUSION: Asymmetric renal size. No evidence of hydronephrosis.. Orestes Starr MD Objective Remarks GENERAL: Well-nourished, well-developed patient in NAD. Awake and alert. Walking in the unit. SKIN: Warm and dry. No rash. HEAD: Normocephalic. Atraumatic. EYES: Pupils equal and round. No scleral icterus. No injection or drainage. ENT: No nasal bleeding or discharge. Mucous membranes pink and moist. NECK: Supple. Trachea midline. CARDIOVASCULAR: Regular rate and rhythm. S1, S2 noted. No murmur appreciated. RESPIRATORY: No accessory muscle use. Clear to auscultation. Breath sounds equal bilaterally. GASTROINTESTINAL: Abdomen soft, non-tender, mildly distended. Hypoactive bowel sounds x4. MUSCULOSKELETAL: No obvious deformities. Extremities without clubbing, cyanosis , or edema. NEUROLOGICAL: Awake and alert. No obvious cranial nerve deficits. Motor grossly within normal limits. 5/5 muscle strength in bilateral upper and lower extremities. Normal speech. Medications and IVs Current Medications Medications (Trade) Dose Ordered Sig/[place] Route Start Time Stop Time Status Last Admin (Norvasc) 5 mg DAILY PO 12/23/16 10:45 01/03/17 09:10 (Cogentin) 1 mg HS PO 12/23/16 21:00 01/02/17 21:23 (Lopressor) 50 mg BID PO 12/23/16 10:45 01/03/17 09:10 (Tylenol) 650 mg Q4H PRN PO 12/23/16 11:00 (Milk Of Magnesia Liq) 30 ml DAILY PRN PO 12/23/16 11:00 12/29/16 08:34 (Mag-Al Plus Susp Liq) 30 ml Q6H PRN PO 12/23/16 11:00 (Eskalith Sr) 450 mg BID PO 12/24/16 12:15 01/03/17 09:10 (Refresh Tears 0.5% Opth Soln) 1 drop Q6HR EACH EYE 12/24/16 18:00 01/03/17 11:26 (Ativan) 1 mg Q6H PRN PO 12/25/16 13:00 01/02/17 18:24 (Ativan Inj) 1 mg Q6H PRN IM 12/25/16 13:00 (Colace) 100 mg BID PO 12/26/16 21:00 01/03/17 09:10 (Dulcolax Ec) 10 mg DAILY PRN PO 12/26/16 15:45 (Catapres) 0.1 mg Q6H PRN PO 12/26/16 17:00 (Pill Splitter) 1 ea UNSCH PRN OTHER 12/27/16 15:30 (SEROquel) 50 mg DAILY PO 12/30/16 09:00 01/03/17 09:10 (SEROquel) 300 mg HS PO 01/02/17 21:00 01/02/17 21:00 (Lulu-Colace) 1 tab BID PO 01/03/17 21:00 (Milk Of Magnesia Liq) 30 ml Q12H PRN PO 01/03/17 15:45 (Senokot) 17.2 mg Q12H PRN PO 01/03/17 15:45 (Dulcolax Supp) 10 mg DAILY PRN RECTAL 01/03/17 15:45 (Lactulose Liq) 30 ml DAILY PRN PO 01/03/17 15:45 A/P Problem List: (1) Bipolar disorder, manic ICD Code: F31.10 Status: Chronic (2) Schizophrenia, paranoid, chronic ICD Code: F20.0 Status: Chronic Assessment and Plan 51-year-old male with past medical history which includes hypertension, bipolar disorder and schizophrenia initially presented to the emergency department with complaints of not being able sleep for the past 3 days. Bipolar Insomnia Management per psychiatric team PARVEEN on CKD2. Elevated creatinine-appears chronic baseline creatinine at baseline around 1.1-1.2. Noted Cr 1.6 01/01. Trending down. Encourage by mouth hydration Recheck in AM Avoid nephrotoxins Renal US personally reviewed and essentially unremarkable Will order UA - pending. Patient is asymptomatic Hypertension chronic Continue patient's home medications include metoprolol and Norvasc Monitor blood pressure trend Dry eye bilaterally Refresh Tears every 6 hours Constipation KUB ordered by primary team - personally reviewed showing mild adynamic ileus or developing partial small bowel obstruction NPO Mag citrate Dulcolax suppository Pericolace BID Monitor for BM DVT prophylaxis patient is ambulatory and low risk Discussed with nursing staff, Dr. Bradshaw, Dr. Daly and patient Ewelina Salazar Jan 03, 2017 16:45
[2017-01-03 18:01] VITALS: BP 148/91; PULSE 93; RESP 16; TEMP 98.8; O2SAT 98
[2017-01-03] MEDS: QUEtiapine FUMARATE 300 MG TAB PO SCH (20:52)
[2017-01-03] MEDS: DOCUSATE SODIUM 50 MG/SENNA 8.6 MG TAB PO SCH (20:52)
[2017-01-03] MEDS: BENZTROPINE MESYLATE 1 MG TAB PO SCH (20:52)
[2017-01-04] MEDS: LORazepam 1 MG TAB PO PRN (00:44)
[2017-01-04 05:59] VITALS: BP 145/91; PULSE 111; RESP 18; TEMP 98; O2SAT 98
[2017-01-04] MEDS: CARBOXYMETHYLCELL SOD 0.5% OPTH SOLN 15 ML BTL EACH EYE SCH ×4 (06:00→17:08)
[2017-01-04] MEDS: DOCUSATE SODIUM 100 MG CAP PO SCH ×2 (08:24→21:32)
[2017-01-04] MEDS: QUEtiapine FUMARATE 25 MG TAB PO SCH (08:24)
[2017-01-04] MEDS: METOPROLOL TARTRATE 50 MG TAB PO SCH ×2 (08:24→21:32)
[2017-01-04] MEDS: LITHIUM CARBONATE 450 MG CONTROLLED RELEASE TAB PO SCH ×2 (08:24→21:32)
[2017-01-04] MEDS: DOCUSATE SODIUM 50 MG/SENNA 8.6 MG TAB PO SCH ×2 (08:24→21:32)
[2017-01-04] MEDS: amLODIPine BESYLATE 5 MG TAB PO SCH (08:24)
--- NOTE | 2017-01-04 10:55 | HHI.PR ---
Subjective Remarks Follow up on patient with constipation. Patient seen today. He has had multiple bowel movements. Denies any N/V or abdominal pain. Denies any other complaints. Objective Vitals Vital Signs Date Time Temp Pulse Resp B/P Pulse Ox O2 Delivery O2 Flow Rate FiO2 01/04/17 05:59 98.0 111 18 145/91 98 01/03/17 18:01 98.8 93 16 148/91 98 I/O 01/03/17 01/03/17 01/03/17 01/04/17 01/04/17 01/04/17 07:00 15:00 23:00 07:00 15:00 23:00 Intake Total 0 ml Balance 0 ml Intake Oral 0 ml # Bowel Movements 1 2 Result Diagram: 01/03/17 0901/03/17 09 Imaging Last Impressions Abdomen X-Ray 01/03/17 0000 Signed Impressions: Service Date/Time: Tuesday, January 03, 2017 13:14 - CONCLUSION: 1. Very limited examination due to patient's body habitus. 2. Questionably minimally prominent small bowel loops in the mid abdomen which may reflect mild adynamic ileus or developing partial small bowel obstruction. Andrea Hensley MD Renal Ultrasound 01/02/17 0000 Signed Impressions: Service Date/Time: Monday, January 02, 2017 20:39 - CONCLUSION: Asymmetric renal size. No evidence of hydronephrosis.. Orestes Starr MD Objective Remarks GENERAL: Well-nourished, well-developed patient in NAD. Awake and alert. Walking in the unit. SKIN: Warm and dry. No rash. HEAD: Normocephalic. Atraumatic. EYES: Pupils equal and round. No scleral icterus. No injection or drainage. ENT: No nasal bleeding or discharge. Mucous membranes pink and moist. NECK: Supple. Trachea midline. CARDIOVASCULAR: Regular rate and rhythm. S1, S2 noted. No murmur appreciated. RESPIRATORY: No accessory muscle use. Clear to auscultation. Breath sounds equal bilaterally. GASTROINTESTINAL: Abdomen soft, non-tender, nondistended. (+)bowel sounds x4. MUSCULOSKELETAL: No obvious deformities. Extremities without clubbing, cyanosis , or edema. NEUROLOGICAL: Awake and alert. No obvious cranial nerve deficits. Motor grossly within normal limits. 5/5 muscle strength in bilateral upper and lower extremities. Normal speech. Medications and IVs Current Medications Medications (Trade) Dose Ordered Sig/John [place] Route Start Time Stop Time Status Last Admin (Norvasc) 5 mg DAILY PO 12/23/16 10:45 01/04/17 08:24 (Cogentin) 1 mg HS PO 12/23/16 21:00 01/03/17 20:52 (Lopressor) 50 mg BID PO 12/23/16 10:45 01/04/17 08:24 (Tylenol) 650 mg Q4H PRN PO 12/23/16 11:00 (Milk Of Magnesia Liq) 30 ml DAILY PRN PO 12/23/16 11:00 12/29/16 08:34 (Mag-Al Plus Susp Liq) 30 ml Q6H PRN PO 12/23/16 11:00 (Eskalith Sr) 450 mg BID PO 12/24/16 12:15 01/04/17 08:24 (Refresh Tears 0.5% Opth Soln) 1 drop Q6HR EACH EYE 12/24/16 18:00 01/03/17 17:11 (Ativan) 1 mg Q6H PRN PO 12/25/16 13:00 01/04/17 00:44 (Ativan Inj) 1 mg Q6H PRN IM 12/25/16 13:00 (Colace) 100 mg BID PO 12/26/16 21:00 01/04/17 08:24 (Dulcolax Ec) 10 mg DAILY PRN PO 12/26/16 15:45 (Catapres) 0.1 mg Q6H PRN PO 12/26/16 17:00 (Pill Splitter) 1 ea UNSCH PRN OTHER 12/27/16 15:30 (SEROquel) 50 mg DAILY PO 12/30/16 09:00 01/04/17 08:24 (SEROquel) 300 mg HS PO 01/02/17 21:00 01/03/17 20:52 (Lulu-Colace) 1 tab BID PO 01/03/17 21:00 01/04/17 08:24 (Milk Of Magnesia Liq) 30 ml Q12H PRN PO 01/03/17 15:45 (Senokot) 17.2 mg Q12H PRN PO 01/03/17 15:45 (Dulcolax Supp) 10 mg DAILY PRN RECTAL 01/03/17 15:45 (Lactulose Liq) 30 ml DAILY PRN PO 01/03/17 15:45 A/P Problem List: (1) Bipolar disorder, manic ICD Code: F31.10 Status: Chronic (2) Schizophrenia, paranoid, chronic ICD Code: F20.0 Status: Chronic Assessment and Plan 51-year-old male with past medical history which includes hypertension, bipolar disorder and schizophrenia initially presented to the emergency department with complaints of not being able sleep for the past 3 days. Bipolar Insomnia Management per psychiatric team PARVEEN on CKD2. Elevated creatinine-appears chronic baseline creatinine at baseline around 1.1-1.2. Noted Cr 1.6 01/01. Trending down. Encourage by mouth hydration Recheck in AM - labs still to be drawn for today Avoid nephrotoxins Renal US personally reviewed and essentially unremarkable Will order UA - pending. Patient is asymptomatic Hypertension chronic Continue patient's home medications include metoprolol and Norvasc Monitor blood pressure trend Dry eye bilaterally Refresh Tears every 6 hours Constipation KUB ordered by primary team - personally reviewed showing mild adynamic ileus or developing partial small bowel obstruction (+)multiple BMs resume regular diet Pericolace BID DVT prophylaxis patient is ambulatory and low risk Discussed with nursing staff, Dr. Bradshaw, Dr. Daly and patient Ewelina Salazar Jan 04, 2017 10:54
--- NOTE | 2017-01-04 12:41 | HHI.PYPN ---
Subjective Remarks Patient seen and examined with counselor and nurse. Chart reviewed. Patient had resolution of constipation overnight with multiple bowel movements. Case discussed with nursing staff. On my examination today, the patient's mental status is more or less unchanged. He remains quite disorganized. Reports sleep is poor. Endorses racing thoughts. Appears internally preoccupied. Describes some vague suicidal ideation but denies any urge to hurt himself on the inpatient psychiatric unit. Denies side effects from medications. No physical complaints. Spoke with patient's mother over the phone. LISET on chart. She doesn't find the patient much improved. She says that in the past he has required oral supplementation of his Invega Sustenna towards the end of the dose, and he last received Sustenna middle of last month. She notes that he takes the oral Invega at HS. She is in agreement with adding oral Invega to try to better manage patient's psychotic symptoms. Review of Systems ROS Limitations: Psychotic, Poor Historian Except as stated in HPI: all other systems reviewed are Neg Objective Alert: Yes [place]: Person, Place Mood: Anxious, Calm Affect: Blunted Memory Intact: Comment (Not formally assessed today) Hallucinations: Other (internally stimulated) Delusions: Yes Delusion Type: Other (bizarre) Suicidal: Plan (denies plan to hurt himself on the unit), Ideation (vague SI) Homicidal: Ideation (No HI) Insight/Judgment Poor Remarks No motor abnormalities noted. Thought process disorganized. Grooming and hygiene fair at best. Labs Labs reviewed. Vitals/IOs Vital Signs Date Time Temp Pulse Resp B/P Pulse Ox O2 Delivery O2 Flow Rate FiO2 01/04/17 05:59 98.0 111 18 145/91 98 Intake and Output 01/03/17 01/03/17 01/03/17 07:59 15:59 23:59 Intake Total 0 ml Balance 0 ml Assessment & Plan Problem List: (1) Schizoaffective disorder ICD Code: F25.9 Assessment & Plan Add oral Invega 3mg qHS with plans to titrate to effect. Continue other psychotropics as ordered. Very much appreciate hospitalist input and assistance. Follow-up CBC and BMP ordered by the hospitalist team for tomorrow. Continue to monitor on the inpatient unit. Continue other medications and care as ordered. Justification for Cont. Inpt. Impairment in reality construction. Medication changes in process. High risk for decompensation in less restrictive environment. Discharge Planning Likely will require inpatient stabilization through the weekend at least. Request HC Surrog/Guard Advoc?: Yes Problem Qualifiers (1) Schizoaffective disorder: Qualified Code: F25.0 - Schizoaffective disorder, bipolar type Masoud Bradshaw MD Jan 04, 2017 12:41
[2017-01-04 16:45] VITALS: BP 165/80; PULSE 87; RESP 17; TEMP 97.6; O2SAT 96
[2017-01-04] MEDS ORDERED: PALIPERIDONE ER 3 MG TAB PO SCH (21:00)
[2017-01-04] MEDS: BENZTROPINE MESYLATE 1 MG TAB PO SCH (21:32)
[2017-01-04] MEDS: QUEtiapine FUMARATE 300 MG TAB PO SCH (21:32)
--- NOTE | 2017-01-04 22:48 | HHI.PR ---
Subjective Remarks Late entry. The patient was seen earlier today at noon. He was ambulating in the hallways. Says she had already 3 BM, loose He denies chest pain or sob. No n/v/d/c. He has no abdominal pain. No fever or chills. Passing gas. Objective Vitals Vital Signs Date Time Temp Pulse Resp B/P Pulse Ox O2 Delivery O2 Flow Rate FiO2 01/04/17 16:45 97.6 87 17 165/80 96 01/04/17 05:59 98.0 111 18 145/91 98 I/O 01/03/17 01/03/17 01/03/17 01/04/17 01/04/17 01/04/17 06:59 14:59 22:59 06:59 14:59 22:59 Intake Total 0 ml 360 ml Balance 0 ml 360 ml Intake Oral 0 ml 360 ml # Bowel Movements 1 2 Result Diagram: 01/03/17 0926 01/03/17 0926 Imaging Last Impressions Abdomen X-Ray 01/03/17 0000 Signed Impressions: Service Date/Time: Tuesday, January 03, 2017 13:14 - CONCLUSION: 1. Very limited examination due to patient's body habitus. 2. Questionably minimally prominent small bowel loops in the mid abdomen which may reflect mild adynamic ileus or developing partial small bowel obstruction. Andrea Hensley MD Renal Ultrasound 01/02/17 0000 Signed Impressions: Service Date/Time: Monday, January 02, 2017 20:39 - CONCLUSION: Asymmetric renal size. No evidence of hydronephrosis.. Orestes Starr MD Objective Remarks GENERAL: This is a well-nourished, well-developed patient, in no apparent distress. EYES: Extraocular motions intact. No scleral icterus. No drainage. Right lower lid mild erythema-bilateral eyes appear dry, improving. CARDIOVASCULAR: Regular rate and rhythm RESPIRATORY: Clear to auscultation. Breath sounds equal bilaterally. No wheezes , rales, or rhonchi. GASTROINTESTINAL: Abdomen soft, non-tender, nondistended. No guarding. MUSCULOSKELETAL: Extremities without clubbing, cyanosis, or edema. No joint tenderness, effusion, or edema noted. No calf tenderness. Negative Homans sign bilaterally. NEUROLOGICAL: Awake and alert. No focal deficits appreciated. Motor and sensory grossly within normal limits. Five out of 5 muscle strength in all muscle groups. Normal speech. A/P Problem List: (1) Bipolar disorder, manic ICD Code: F31.10 Status: Chronic (2) Schizophrenia, paranoid, chronic ICD Code: F20.0 Status: Chronic Assessment and Plan 51-year-old male with past medical history which includes hypertension, bipolar disorder and schizophrenia initially presented to the emergency department with complaints of not being able sleep for the past 3 days. Constipation Partial Small bowel Obstruction, resolving KUB reviewed showing mild adynamic ileus or developing partial small bowel obstruction had multiple BMs resume regular diet Pericolace BID Monitor Bipolar Insomnia Management per psychiatric team PARVEEN on CKD2. Elevated creatinine-appears chronic baseline creatinine at baseline around 1.1-1.2. Noted Cr 1.6 01/01. Trending down. Encourage by mouth hydration Recheck in AM - labs still to be drawn for today Avoid nephrotoxins Renal US personally reviewed and essentially unremarkable Will order UA - pending. Patient is asymptomatic Hypertension chronic Continue patient's home medications include metoprolol and Norvasc Monitor blood pressure trend Dry eye bilaterally Refresh Tears every 6 hours DVT prophylaxis patient is ambulatory and low risk Discussed with the patient, nurse Nathalia Daly MD Jan 04, 2017 22:48
[2017-01-05 05:28] VITALS: BP 119/72; PULSE 90; RESP 16; TEMP 98.1
[2017-01-05] MEDS: CARBOXYMETHYLCELL SOD 0.5% OPTH SOLN 15 ML BTL EACH EYE SCH ×4 (06:00→18:00)
--- NOTE | 2017-01-05 08:41 | HHI.PR ---
Subjective Remarks Patient in nad. With psychosis. Patient says she is eating well. Says he did not have a BP yet, but he did have BM yesterday. Has no pain in his belly. No fever or chills. No n/v/d/c. No chest pain or sob. Objective Vitals Vital Signs Date Time Temp Pulse Resp B/P Pulse Ox O2 Delivery O2 Flow Rate FiO2 01/05/17 05:28 98.1 90 16 119/72 01/04/17 16:45 97.6 87 17 165/80 96 I/O 01/04/17 01/04/17 01/04/17 01/05/17 01/05/17 01/05/17 07:00 15:00 23:00 07:00 15:00 23:00 Intake Total 360 ml Balance 360 ml Intake Oral 360 ml # Bowel Movements 2 Result Diagram: 01/03/1792501/03/17925 Imaging Last Impressions Abdomen X-Ray 01/03/17 0000 Signed Impressions: Service Date/Time: Tuesday, January 03, 2017 13:14 - CONCLUSION: 1. Very limited examination due to patient's body habitus. 2. Questionably minimally prominent small bowel loops in the mid abdomen which may reflect mild adynamic ileus or developing partial small bowel obstruction. Andrea Hensley MD Renal Ultrasound 01/02/17 0000 Signed Impressions: Service Date/Time: Monday, January 02, 2017 20:39 - CONCLUSION: Asymmetric renal size. No evidence of hydronephrosis.. Orestes Starr MD Objective Remarks GENERAL: This is a well-nourished, well-developed patient, in no apparent distress. EYES: Extraocular motions intact. No scleral icterus. No drainage. Right lower lid mild erythema-bilateral eyes appear dry, improving. CARDIOVASCULAR: Regular rate and rhythm RESPIRATORY: Clear to auscultation. Breath sounds equal bilaterally. No wheezes , rales, or rhonchi. GASTROINTESTINAL: Abdomen soft, non-tender, nondistended. No guarding. MUSCULOSKELETAL: Extremities without clubbing, cyanosis, or edema. No joint tenderness, effusion, or edema noted. No calf tenderness. Negative Homans sign bilaterally. NEUROLOGICAL: Awake and alert. No focal deficits appreciated. Motor and sensory grossly within normal limits. Five out of 5 muscle strength in all muscle groups. Normal speech. A/P Problem List: (1) Bipolar disorder, manic ICD Code: F31.10 Status: Chronic (2) Schizophrenia, paranoid, chronic ICD Code: F20.0 Status: Chronic Assessment and Plan 51-year-old male with past medical history which includes hypertension, bipolar disorder and schizophrenia initially presented to the emergency department with complaints of not being able sleep for the past 3 days. Constipation Partial Small bowel Obstruction, resolving. KUB reviewed showing mild adynamic ileus or developing partial small bowel obstruction Had multiple BMs Resume regular diet Pericolace BID Monitor Monitor closely Bipolar Insomnia Management per psychiatric team PARVEEN on CKD2. Elevated creatinine-appears chronic baseline creatinine at baseline around 1.1-1.2. Noted Cr 1.6 01/01. Trending down. Encourage by mouth hydration Recheck in AM - labs still to be drawn for today Avoid nephrotoxins Renal US personally reviewed and essentially unremarkable Will order UA - pending. Patient is asymptomatic Hypertension chronic Continue patient's home medications include metoprolol and Norvasc Monitor blood pressure trend Dry eye bilaterally Refresh Tears every 6 hours DVT prophylaxis patient is ambulatory and low risk Discussed with the patient, nurse Nathalia Daly MD Jan 05, 2017 08:41
[2017-01-05] MEDS: METOPROLOL TARTRATE 50 MG TAB PO SCH ×3 (09:00→20:21)
[2017-01-05] MEDS: amLODIPine BESYLATE 5 MG TAB PO SCH ×2 (09:00→09:04)
[2017-01-05] MEDS: QUEtiapine FUMARATE 25 MG TAB PO SCH (09:04)
[2017-01-05] MEDS: DOCUSATE SODIUM 100 MG CAP PO SCH ×2 (09:04→20:21)
[2017-01-05] MEDS: LITHIUM CARBONATE 450 MG CONTROLLED RELEASE TAB PO SCH (09:05)
[2017-01-05] MEDS: DOCUSATE SODIUM 50 MG/SENNA 8.6 MG TAB PO SCH ×2 (09:05→20:21)
--- NOTE | 2017-01-05 12:22 | HHI.PYPN ---
Subjective Remarks Patient seen and examined with nurse. Chart reviewed. Case discussed with nursing staff. On my examination today, patient remains fairly disorganized. Rambles about autographs and baseball being his favorite sport. Says that he is experiencing auditory hallucinations to "do what I do best." No reported command auditory hallucinations to hurt self or others. No evidence side effects from medications. No physical complaints. Review of Systems ROS Limitations: Poor Historian Except as stated in HPI: all other systems reviewed are Neg Objective Alert: Yes [place]: Person, Place Mood: Calm Affect: Flat Memory Intact: Comment (Not formally assessed today) Hallucinations: Other (remains internally preoccupied) Delusions: Yes Delusion Type: Other (ongoing bizarre ideation) Suicidal: Ideation (no suicidal ideation) Homicidal: Ideation (no homicidal ideation) Insight/Judgment Poor Remarks No motor abnormalities noted Labs Labs reviewed. It appears patient may have refused laboratories this morning. I have asked the nurse to have house mover supervisor come back to try to draw the CBC and BMP ordered by the hospitalist team. Vitals/IOs Vital Signs Date Time Temp Pulse Resp B/P Pulse Ox O2 Delivery O2 Flow Rate FiO2 01/05/17 05:28 98.1 90 16 119/72 01/04/17 16:45 96 Intake and Output 01/04/17 01/04/17 01/04/17 07:59 15:59 23:59 Intake Total 360 ml Balance 360 ml Assessment & Plan Problem List: (1) Schizoaffective disorder ICD Code: F25.9 Assessment & Plan Ongoing thought disorganization. Titrate Invega through the weekend to target psychosis. Worried that lithium may be accumulating as renal function becomes more impaired. Drop lithium dose to 300mg BID and add trough lithium level to morning labs tomorrow morning. Follow up on CBC/BMP ordered today; also check CK. Appreciate ongoing hospitalist input. Continue to monitor on the inpatient unit. Continue other medications and care as ordered. Justification for Cont. Inpt. Medication changes and process. Impairment in reality construction. High risk for decompensation and less restrictive environment. Discharge Planning Pending psychiatric stabilization. Request HC Surrog/Guard Advoc?: Yes Problem Qualifiers (1) Schizoaffective disorder: Qualified Code: F25.0 - Schizoaffective disorder, bipolar type Masoud Bradshaw MD Jan 05, 2017 12:22
[2017-01-05] MEDS: LORazepam 1 MG TAB PO PRN (16:41)
[2017-01-05 17:55] VITALS: BP 130/79; PULSE 120; RESP 17; TEMP 97.9; O2SAT 97
[2017-01-05] MEDS: BENZTROPINE MESYLATE 1 MG TAB PO SCH (20:21)
[2017-01-05] MEDS: PALIPERIDONE ER 3 MG TAB PO SCH (20:21)
[2017-01-05] MEDS: QUEtiapine FUMARATE 300 MG TAB PO SCH (20:21)
[2017-01-05] MEDS: LITHIUM CARBONATE 300 MG SLOW RELEASE TAB PO SCH (20:32)
[2017-01-06] MEDS: CARBOXYMETHYLCELL SOD 0.5% OPTH SOLN 15 ML BTL EACH EYE SCH ×4 (06:00→17:08)
[2017-01-06 06:17] VITALS: BP 96/62; PULSE 73; RESP 18; TEMP 98.7; O2SAT 99
[2017-01-06] MEDS: PALIPERIDONE ER 3 MG TAB PO SCH ×2 (08:15→21:38)
[2017-01-06] MEDS: LITHIUM CARBONATE 300 MG SLOW RELEASE TAB PO SCH ×2 (08:16→21:00)
[2017-01-06] MEDS: DOCUSATE SODIUM 50 MG/SENNA 8.6 MG TAB PO SCH ×3 (08:16→21:52)
[2017-01-06] MEDS: METOPROLOL TARTRATE 50 MG TAB PO SCH ×2 (08:16→21:38)
[2017-01-06] MEDS: DOCUSATE SODIUM 100 MG CAP PO SCH ×2 (08:16→21:52)
[2017-01-06] MEDS: amLODIPine BESYLATE 5 MG TAB PO SCH (08:16)
[2017-01-06] MEDS: QUEtiapine FUMARATE 25 MG TAB PO SCH (08:16)
--- NOTE | 2017-01-06 09:48 | HHI.PR ---
Subjective Remarks Labs not done . Patient says he feels his belly is bleated. No n/v. Ate breakfast but says s he did not like lunch. No fever or chills. No abdominal pain. Feels he has gas. Passing gas. Objective Vitals Vital Signs Date Time Temp Pulse Resp B/P Pulse Ox O2 Delivery O2 Flow Rate FiO2 01/06/17 06:17 98.7 73 18 96/62 99 01/05/17 17:55 97.9 120 17 130/79 97 Result Diagram: 01/03/17 0926 01/03/17 0926 Imaging Last Impressions Abdomen X-Ray 01/03/17 0000 Signed Impressions: Service Date/Time: Tuesday, January 03, 2017 13:14 - CONCLUSION: 1. Very limited examination due to patient's body habitus. 2. Questionably minimally prominent small bowel loops in the mid abdomen which may reflect mild adynamic ileus or developing partial small bowel obstruction. nAdrea Hensley MD Renal Ultrasound 01/02/17 0000 Signed Impressions: Service Date/Time: Monday, January 02, 2017 20:39 - CONCLUSION: Asymmetric renal size. No evidence of hydronephrosis.. Orestes Starr MD Objective Remarks GENERAL: This is a well-nourished, well-developed patient, in no apparent distress. EYES: Extraocular motions intact. No scleral icterus. No drainage. Right lower lid mild erythema-bilateral eyes appear dry, improving. CARDIOVASCULAR: Regular rate and rhythm RESPIRATORY: Clear to auscultation. Breath sounds equal bilaterally. No wheezes , rales, or rhonchi. GASTROINTESTINAL: Abdomen soft, non-tender, nondistended. No guarding. MUSCULOSKELETAL: Extremities without clubbing, cyanosis, or edema. No joint tenderness, effusion, or edema noted. No calf tenderness. Negative Homans sign bilaterally. NEUROLOGICAL: Awake and alert. No focal deficits appreciated. Motor and sensory grossly within normal limits. Five out of 5 muscle strength in all muscle groups. Normal speech. A/P Problem List: (1) Bipolar disorder, manic ICD Code: F31.10 Status: Chronic (2) Schizophrenia, paranoid, chronic ICD Code: F20.0 Status: Chronic Assessment and Plan 51-year-old male with past medical history which includes hypertension, bipolar disorder and schizophrenia initially presented to the emergency department with complaints of not being able sleep for the past 3 days. Constipation Partial Small bowel Obstruction, resolving. KUB reviewed showing mild adynamic ileus or developing partial small bowel obstruction Resume regular diet Pericolace BID Give mag citrate once Monitor Monitor closely Bipolar Insomnia Management per psychiatric team PARVEEN on CKD2. Elevated creatinine-appears chronic baseline creatinine at baseline around 1.1-1.2. Noted Cr 1.6 01/01. Trending down. Encourage by mouth hydration Recheck in AM - labs still to be drawn for today Avoid nephrotoxins Renal US personally reviewed and essentially unremarkable Will order UA - pending. Patient is asymptomatic Hypertension chronic Continue patient's home medications include metoprolol and Norvasc Monitor blood pressure trend Dry eye bilaterally Refresh Tears every 6 hours DVT prophylaxis patient is ambulatory and low risk Discussed with the patient, nurse Nathalia Daly MD Jan 06, 2017 09:48
[2017-01-06 12:16] LABS: AUTOMATED NEUTROPHIL # 8.6 TH/MM3 (1.8-7.7); BASOPHIL # 0.1 TH/MM3 (0-0.2); BASOPHIL % 0.5 % (0.0-2.0); EOSINOPHIL # 0.3 TH/MM3 (0-0.4); EOSINOPHIL % 2.5 % (0.0-4.0); HEMATOCRIT 39.5 % (39.0-51.0); HEMO FLAGS DIFF FINAL; LYMPH % 14.8 % (9.0-44.0); LYMPHOCYTE # 1.7 TH/MM3 (1.0-4.8); MEAN CELL VOLUME 82.1 FL (80.0-100.0); MEAN CORPUSCULAR HEMOGLOBIN 27.5 PG (27.0-34.0); MEAN CORPUSCULAR HGB CONC 33.4 % (32.0-36.0); MONO % 7.3 % (0.0-8.0); NEUT % 74.9 % (16.0-70.0); PLATELET COUNT 252 TH/MM3 (150-450); RED BLOOD COUNT 4.81 MIL/MM3 (4.50-5.90); RED CELL DISTRIBUTION WIDTH 14.1 % (11.6-17.2); WHITE BLOOD COUNT 11.5 TH/MM3 (4.0-11.0)
[2017-01-06 12:46] LABS: BICARBONATE 28.1 MEQ/L (21.0-32.0); MAGNESIUM 2.6 MG/DL (1.5-2.5); POTASSIUM 3.6 MEQ/L (3.5-5.1)
[2017-01-06] MEDS ORDERED: MAGNESIUM CITRATE SOLN 300 ML BTL PO ONE (14:00)
--- NOTE | 2017-01-06 15:43 | HHI.PYPN ---
Subjective Remarks Patient was seen and case discussed with nursing. Patient continues to be followed by the medical team. Voices today are saying "blah, all the color." Remains internally preoccupied. Thought processes tangential. Denies suicidal ideation intent or plan. Compliant with medications Objective Alert: Yes [place]: Person, Place Mood: Calm Affect: Blunted Memory Intact: Comment (Not formally assessed today) Hallucinations: Other (remains internally preoccupied) Delusions: Yes Delusion Type: Other (ongoing bizarre ideation) Suicidal: Ideation (no suicidal ideation) Homicidal: Ideation (no homicidal ideation) Insight/Judgment Poor Labs Test 01/06/17 11:50 White Blood Count 11.5 TH/MM3 Red Blood Count 4.81 MIL/MM3 Hemoglobin 13.2 GM/DL Hematocrit 39.5 % Mean Corpuscular Volume 82.1 FL Mean Corpuscular Hemoglobin 27.5 PG Mean Corpuscular Hemoglobin 33.4 % Concent Red Cell Distribution Width 14.1 % Platelet Count 252 TH/MM3 Mean Platelet Volume 7.8 FL Neutrophils (%) (Auto) 74.9 % Lymphocytes (%) (Auto) 14.8 % Monocytes (%) (Auto) 7.3 % Eosinophils (%) (Auto) 2.5 % Basophils (%) (Auto) 0.5 % Neutrophils # (Auto) 8.6 TH/MM3 Lymphocytes # (Auto) 1.7 TH/MM3 Monocytes # (Auto) 0.8 TH/MM3 Eosinophils # (Auto) 0.3 TH/MM3 Basophils # (Auto) 0.1 TH/MM3 CBC Comment DIFF FINAL Differential Comment Sodium Level 138 MEQ/L Potassium Level 3.6 MEQ/L Chloride Level 103 MEQ/L Carbon Dioxide Level 28.1 MEQ/L Anion Gap 7 MEQ/L Blood Urea Nitrogen 13 MG/DL Creatinine 1.38 MG/DL Estimat Glomerular Filtration 55 ML/MIN Rate Random Glucose 85 MG/DL Calcium Level 10.0 MG/DL Magnesium Level 2.6 MG/DL Total Creatine Kinase 97 U/L [place] Level 1.2 MEQ/L Vitals/IOs Vital Signs Date Time Temp Pulse Resp B/P Pulse Ox O2 Delivery O2 Flow Rate FiO2 01/06/17 06:17 98.7 73 18 96/62 99 Assessment & Plan Problem List: (1) Schizoaffective disorder ICD Code: F25.9 Assessment & Plan Continue current treatment plan Justification for Cont. Inpt. Patient would decompensate in a less restrictive setting Request HC Surrog/Guard Advoc?: Yes Problem Qualifiers (1) Schizoaffective disorder: Qualified Code: F25.0 - Schizoaffective disorder, bipolar type Cordell Peña DO Jan 06, 2017 15:43
[2017-01-06 17:00] VITALS: BP 132/76; PULSE 82; RESP 18; TEMP 97.3; O2SAT 99
[2017-01-06 21:00] VITALS: BP 120/83; PULSE 104; RESP 20
[2017-01-06] MEDS: BENZTROPINE MESYLATE 1 MG TAB PO SCH (21:37)
[2017-01-06] MEDS: QUEtiapine FUMARATE 300 MG TAB PO SCH (21:52)
[2017-01-07 05:38] VITALS: BP 107/72; PULSE 79; RESP 18; TEMP 97.9; O2SAT 99
[2017-01-07] MEDS: CARBOXYMETHYLCELL SOD 0.5% OPTH SOLN 15 ML BTL EACH EYE SCH ×4 (06:00→17:25)
[2017-01-07] MEDS: DOCUSATE SODIUM 50 MG/SENNA 8.6 MG TAB PO SCH (08:51)
[2017-01-07] MEDS: amLODIPine BESYLATE 5 MG TAB PO SCH (08:51)
[2017-01-07] MEDS: QUEtiapine FUMARATE 25 MG TAB PO SCH (08:51)
[2017-01-07] MEDS: DOCUSATE SODIUM 100 MG CAP PO SCH (08:51)
[2017-01-07] MEDS: METOPROLOL TARTRATE 50 MG TAB PO SCH ×2 (08:51→21:12)
[2017-01-07] MEDS: LITHIUM CARBONATE 300 MG SLOW RELEASE TAB PO SCH ×2 (09:00→21:00)
[2017-01-07] MEDS: PALIPERIDONE ER 3 MG TAB PO SCH ×2 (09:30→21:14)
--- NOTE | 2017-01-07 12:09 | HHI.PYPN ---
Subjective Remarks Patient was seen and case discussed with nursing. Per nursing, patient has been bizarre throughout the day. With staring to the window for 20 minutes. Patient has poor insight. Minimizes his symptoms. Affect remains flattened patient appears preoccupied. Auditory hallucinations are "good things." Denies there command in nature. No specific delusions were elicited. Objective Alert: Yes [place]: Person, Place Mood: Calm Affect: Blunted Memory Intact: Comment (Not formally assessed today) Hallucinations: Other (remains internally preoccupied) Delusions: Yes Delusion Type: Other (ongoing bizarre ideation) Suicidal: Ideation (no suicidal ideation) Homicidal: Ideation (no homicidal ideation) Insight/Judgment poor Vitals/IOs Vital Signs Date Time Temp Pulse Resp B/P Pulse Ox O2 Delivery O2 Flow Rate FiO2 01/07/17 05:38 97.9 79 18 107/72 99 Assessment & Plan Problem List: (1) Schizoaffective disorder ICD Code: F25.9 Assessment & Plan Continue current treatment plan Justification for Cont. Inpt. Patient would decompensate in a less restrictive setting Request HC Surrog/Guard Advoc?: Yes Problem Qualifiers (1) Schizoaffective disorder: Qualified Code: F25.0 - Schizoaffective disorder, bipolar type Cordell Peña DO Jan 07, 2017 12:09
--- NOTE | 2017-01-07 12:27 | HHI.PR ---
Subjective Remarks Follow up on patient with constipation. Patient seen and examined today. Patient reports multiple loose bowel movements. He states he ate breakfast this morning without any difficulty. He denies any nausea, vomiting or abdominal pain. Denies any fever or chills. Discussed with nursing staff who states patient is not a reliable historian. She obtained in reports patient was having multiple loose stools. Objective Vitals Vital Signs Date Time Temp Pulse Resp B/P Pulse Ox O2 Delivery O2 Flow Rate FiO2 01/07/17 05:38 97.9 79 18 107/72 99 01/06/17 21:00 104 20 120/83 01/06/17 17:00 97.3 82 18 132/76 99 Result Diagram: 01/06/17 1150 01/06/17 1150 Imaging Last Impressions Abdomen X-Ray 01/03/17 0000 Signed Impressions: Service Date/Time: Tuesday, January 03, 2017 13:14 - CONCLUSION: 1. Very limited examination due to patient's body habitus. 2. Questionably minimally prominent small bowel loops in the mid abdomen which may reflect mild adynamic ileus or developing partial small bowel obstruction. Andrea Hensley MD Renal Ultrasound 01/02/17 0000 Signed Impressions: Service Date/Time: Monday, January 02, 2017 20:39 - CONCLUSION: Asymmetric renal size. No evidence of hydronephrosis.. Orestes Starr MD Objective Remarks GENERAL: Well-nourished, well-developed patient in NAD. Awake and alert. Walking in the unit. SKIN: Warm and dry. No rash. HEAD: Normocephalic. Atraumatic. EYES: Pupils equal and round. No scleral icterus. No injection or drainage. ENT: No nasal bleeding or discharge. Mucous membranes pink and moist. NECK: Supple. Trachea midline. CARDIOVASCULAR: Regular rate and rhythm. S1, S2 noted. No murmur appreciated. RESPIRATORY: No accessory muscle use. Clear to auscultation. Breath sounds equal bilaterally. GASTROINTESTINAL: Abdomen soft, non-tender. Mildly distended. (+)bowel sounds x4. MUSCULOSKELETAL: No obvious deformities. Extremities without clubbing, cyanosis , or edema. NEUROLOGICAL: Awake and alert. Able to move all extremities. Normal speech. Medications and IVs Current Medications Medications (Trade) Dose Ordered Sig/John Paul Route Start Time Stop Time Status Last Admin (Norvasc) 5 mg DAILY PO 12/23/16 10:45 01/07/17 08:51 (Cogentin) 1 mg HS PO 12/23/16 21:00 01/06/17 21:37 (Lopressor) 50 mg BID PO 12/23/16 10:45 01/07/17 08:51 (Tylenol) 650 mg Q4H PRN PO 12/23/16 11:00 (Milk Of Magnesia Liq) 30 ml DAILY PRN PO 12/23/16 11:00 12/29/16 08:34 (Mag-Al Plus Susp Liq) 30 ml Q6H PRN PO 12/23/16 11:00 (Refresh Tears 0.5% Opth Soln) 1 drop Q6HR EACH EYE 12/24/16 18:00 01/06/17 17:08 (Ativan) 1 mg Q6H PRN PO 12/25/16 13:00 01/05/17 16:41 (Ativan Inj) 1 mg Q6H PRN IM 12/25/16 13:00 (Colace) 100 mg BID PO 12/26/16 21:00 01/07/17 08:51 (Dulcolax Ec) 10 mg DAILY PRN PO 12/26/16 15:45 (Catapres) 0.1 mg Q6H PRN PO 12/26/16 17:00 (Pill Splitter) 1 ea UNSCH PRN OTHER 12/27/16 15:30 (SEROquel) 50 mg DAILY PO 12/30/16 09:00 01/07/17 08:51 (SEROquel) 300 mg HS PO 01/02/17 21:00 01/06/17 21:52 (Lulu-Colace) 1 tab BID PO 01/03/17 21:00 01/07/17 08:51 (Milk Of Magnesia Liq) 30 ml Q12H PRN PO 01/03/17 15:45 (Senokot) 17.2 mg Q12H PRN PO 01/03/17 15:45 (Dulcolax Supp) 10 mg DAILY PRN RECTAL 01/03/17 15:45 (Lactulose Liq) 30 ml DAILY PRN PO 01/03/17 15:45 (Lithobid Sr) 300 mg BID PO 01/05/17 21:00 01/07/17 09:00 (Invega Er) 3 mg Taper BID PO 01/05/17 21:00 01/17/17 20:59 01/07/17 09:30 A/P Problem List: (1) Bipolar disorder, manic ICD Code: F31.10 Status: Chronic (2) Schizophrenia, paranoid, chronic ICD Code: F20.0 Status: Chronic Assessment and Plan 51-year-old male with past medical history which includes hypertension, bipolar disorder and schizophrenia initially presented to the emergency department with complaints of not being able sleep for the past 3 days. Bipolar Insomnia Management per psychiatric team PARVEEN on CKD2. Elevated creatinine-appears chronic baseline creatinine at baseline around 1.1-1.2. Noted Cr 1.6 01/01. Trending down. Today's lab pending. Encourage by mouth hydration Avoid nephrotoxins Renal US personally reviewed and essentially unremarkable Hypertension chronic Continue patient's home medications include metoprolol and Norvasc Monitor blood pressure trend Dry eye bilaterally Refresh Tears every 6 hours Constipation KUB ordered by primary team - personally reviewed showing mild adynamic ileus or developing partial small bowel obstruction (+)multiple loose stools ppr. Patient is poor historian. Abdomen mildly distended. Obtain repeat KUB. continue regular diet Hold Pericolace BID DVT prophylaxis patient is ambulatory and low risk Discussed with nursing staff, Dr. Daly and patient Ewelina Salazar Jan 07, 2017 12:26
[2017-01-07 13:52] LABS: AUTOMATED NEUTROPHIL # 7.7 TH/MM3 (1.8-7.7); BASOPHIL # 0.1 TH/MM3 (0-0.2); BASOPHIL % 0.5 % (0.0-2.0); EOSINOPHIL # 0.3 TH/MM3 (0-0.4); EOSINOPHIL % 2.8 % (0.0-4.0); HEMATOCRIT 38.8 % (39.0-51.0); HEMO FLAGS DIFF FINAL; LYMPHOCYTE # 1.6 TH/MM3 (1.0-4.8); MEAN CELL VOLUME 82.7 FL (80.0-100.0); MEAN CORPUSCULAR HEMOGLOBIN 26.7 PG (27.0-34.0); MEAN CORPUSCULAR HGB CONC 32.3 % (32.0-36.0); MONO % 8.1 % (0.0-8.0); NEUT % 73.6 % (16.0-70.0); PLATELET COUNT 282 TH/MM3 (150-450); RED BLOOD COUNT 4.69 MIL/MM3 (4.50-5.90); WHITE BLOOD COUNT 10.4 TH/MM3 (4.0-11.0)
[2017-01-07 14:28] LABS: BICARBONATE 29.3 MEQ/L (21.0-32.0); POTASSIUM 3.5 MEQ/L (3.5-5.1)
[2017-01-07 16:53] VITALS: BP 143/82; PULSE 73; RESP 18; TEMP 97.7; O2SAT 99
[2017-01-07] MEDS: BENZTROPINE MESYLATE 1 MG TAB PO SCH (21:12)
[2017-01-07] MEDS: QUEtiapine FUMARATE 300 MG TAB PO SCH (21:12)
--- NOTE | 2017-01-07 22:26 | RADRPT ---
EXAM DATE/TIME: 01/07/2017 21:57 [facility] COMPARISON: ABDOMEN UPRIGHT ONLY, January 03, 2017, 13:14. INDICATIONS : Distention. Abdominal pain. MEDICAL HISTORY : None. SURGICAL HISTORY : None. ENCOUNTER: Initial ACUITY: 2 days PAIN SCORE: 7/10 LOCATION: Bilateral lower quadrant FINDINGS: Bowel gas pattern unremarkable without evidence for obstruction or free air. Degenerative change of t he spine. No acute findings. CONCLUSION: 1. No acute findings. Leopoldo Adams MD on January 07, 2017 at 22:24 Board Certified Radiologist. This report was verified electronically.
[2017-01-08 05:26] VITALS: BP 114/64; PULSE 64; RESP 16; TEMP 97.9; O2SAT 96
[2017-01-08] MEDS: CARBOXYMETHYLCELL SOD 0.5% OPTH SOLN 15 ML BTL EACH EYE SCH ×4 (05:51→17:05)
[2017-01-08] MEDS: PALIPERIDONE ER 3 MG TAB PO SCH ×2 (08:27→20:50)
[2017-01-08] MEDS: METOPROLOL TARTRATE 50 MG TAB PO SCH ×2 (08:27→20:50)
[2017-01-08] MEDS: LITHIUM CARBONATE 300 MG SLOW RELEASE TAB PO SCH ×2 (08:27→20:50)
[2017-01-08] MEDS: amLODIPine BESYLATE 5 MG TAB PO SCH (08:27)
[2017-01-08] MEDS: QUEtiapine FUMARATE 25 MG TAB PO SCH (08:27)
--- NOTE | 2017-01-08 11:42 | HHI.PR ---
Subjective Remarks Follow up on patient with constipation. Patient seen and examined today. Patient tells me today he has not had a bowel movement since he was admitted. Yesterday, patient told me he was having multiple loose bowel movements. Repeat KUB is negative. Patient tolerating diet. He denies any N/V or abdominal pain. Denies any fever or chills. Objective Vitals Vital Signs Date Time Temp Pulse Resp B/P Pulse Ox O2 Delivery O2 Flow Rate FiO2 01/08/17 05:26 97.9 64 16 114/64 96 01/07/17 16:53 97.7 73 18 143/82 99 I/O 01/07/17 01/07/17 01/07/17 01/08/17 01/08/17 01/08/17 07:00 15:00 23:00 07:00 15:00 23:00 # Bowel Movements 1 Result Diagram: 01/07/17 1306 01/07/17 1306 Imaging Last Impressions Abdomen X-Ray 01/07/17 0000 Signed Impressions: Service Date/Time: Saturday, January 07, 2017 21:57 - CONCLUSION: 1. No acute findings. Leopoldo Adams MD Renal Ultrasound 01/02/17 0000 Signed Impressions: Service Date/Time: Monday, January 02, 2017 20:39 - CONCLUSION: Asymmetric renal size. No evidence of hydronephrosis.. Orestes Starr MD Objective Remarks GENERAL: Well-nourished, well-developed patient in NAD. Awake and alert. Walking in his bedroom. SKIN: Warm and dry. No rash. HEAD: Normocephalic. Atraumatic. EYES: Pupils equal and round. No scleral icterus. No injection or drainage. ENT: No nasal bleeding or discharge. Mucous membranes pink and moist. NECK: Supple. Trachea midline. CARDIOVASCULAR: Regular rate and rhythm. S1, S2 noted. No murmur appreciated. RESPIRATORY: No accessory muscle use. Clear to auscultation. Breath sounds equal bilaterally. GASTROINTESTINAL: Abdomen soft, non-tender, nondistended. (+)bowel sounds x4. MUSCULOSKELETAL: No obvious deformities. Extremities without clubbing, cyanosis , or edema. NEUROLOGICAL: Awake and alert. Able to move all extremities. Normal speech. Medications and IVs Current Medications Medications (Trade) Dose Ordered Sig/John Paul Route Start Time Stop Time Status Last Admin (Norvasc) 5 mg DAILY PO 12/23/16 10:45 01/08/17 08:27 (Cogentin) 1 mg HS PO 12/23/16 21:00 01/07/17 21:12 (Lopressor) 50 mg BID PO 12/23/16 10:45 01/08/17 08:27 (Tylenol) 650 mg Q4H PRN PO 12/23/16 11:00 (Milk Of Magnesia Liq) 30 ml DAILY PRN PO 12/23/16 11:00 12/29/16 08:34 (Mag-Al Plus Susp Liq) 30 ml Q6H PRN PO 12/23/16 11:00 (Refresh Tears 0.5% Opth Soln) 1 drop Q6HR EACH EYE 12/24/16 18:00 01/08/17 11:04 (Ativan) 1 mg Q6H PRN PO 12/25/16 13:00 01/05/17 16:41 (Ativan Inj) 1 mg Q6H PRN IM 12/25/16 13:00 (Dulcolax Ec) 10 mg DAILY PRN PO 12/26/16 15:45 (Catapres) 0.1 mg Q6H PRN PO 12/26/16 17:00 (Pill Splitter) 1 ea UNSCH PRN OTHER 12/27/16 15:30 (SEROquel) 50 mg DAILY PO 12/30/16 09:00 01/08/17 08:27 (SEROquel) 300 mg HS PO 01/02/17 21:00 01/07/17 21:12 (Lulu-Colace) 1 tab BID PO 01/03/17 21:00 Hold 01/07/17 08:51 (Milk Of Magnesia Liq) 30 ml Q12H PRN PO 01/03/17 15:45 (Senokot) 17.2 mg Q12H PRN PO 01/03/17 15:45 (Dulcolax Supp) 10 mg DAILY PRN RECTAL 01/03/17 15:45 (Lactulose Liq) 30 ml DAILY PRN PO 01/03/17 15:45 (Lithobid Sr) 300 mg BID PO 01/05/17 21:00 01/08/17 08:27 (Invega Er) 6 mg Taper BID PO 01/05/17 21:00 01/17/17 20:59 01/08/17 08:27 A/P Problem List: (1) Bipolar disorder, manic ICD Code: F31.10 Status: Chronic (2) Schizophrenia, paranoid, chronic ICD Code: F20.0 Status: Chronic Assessment and Plan 51-year-old male with past medical history which includes hypertension, bipolar disorder and schizophrenia initially presented to the emergency department with complaints of not being able to sleep for the past 3 days. Hospitalist services consulted for medical management. Bipolar Insomnia Management per psychiatric team PARVEEN on CKD2. Elevated creatinine-appears chronic baseline creatinine at around 1.1-1.2. Noted Cr 1.6 01/01. trending down. Now 1.25. Encourage by mouth hydration Avoid nephrotoxins Renal US personally reviewed and essentially unremarkable Hypertension chronic Continue patient's home medications include metoprolol and Norvasc Monitor blood pressure trend Dry eye bilaterally Refresh Tears every 6 hours Constipation KUB ordered by primary team - personally reviewed showing mild adynamic ileus or developing partial small bowel obstruction Repeat KUB personally reviewed and is negative. continue regular diet Pericolace BID Hypermagnesemia d/c magnesium containing meds repeat level in am DVT prophylaxis patient is ambulatory and low risk Discussed with nursing staff, Dr. Daly and patient Ewelina Salazar Jan 08, 2017 11:42
--- NOTE | 2017-01-08 11:45 | HHI.PYPN ---
Subjective Remarks Patient seen and examined with counselor and nurse. Chart reviewed. Case discussed with nursing staff. Patient noted by nursing staff to be improving and medication compliant. On my examination today, the patient is awake and alert and oriented to January 2017. He knows he is in [place] and that were in [place] but believes that we're in [place], [place]. Denies any AVH. Vague suicidal ideation, no plan or intent. No reported urge to hurt himself on the inpatient psychiatric unit. No delusions elicited. Denies side effects from psychotropics. No physical complaints, except he does note that his stools are somewhat loose now that he is on a scheduled laxative. Review of Systems ROS Limitations: Poor Historian Except as stated in HPI: all other systems reviewed are Neg Objective Alert: Yes [place]: Person, Place (as above), Date (January,) Mood: Calm Affect: Blunted Memory Intact: Comment (not formally assessed) Hallucinations: Other (denies AVH) Delusions: No Delusion Type: Other (no delusions) Suicidal: Ideation (vague SI. No plan or intent.) Homicidal: Ideation (no HI) Insight/Judgment Poor Remarks No motor abnormalities noted. Thought process more linear today. Grooming and hygiene fair. Labs Test 01/07/17 13:06 White Blood Count 10.4 TH/MM3 Red Blood Count 4.69 MIL/MM3 Hemoglobin 12.5 GM/DL Hematocrit 38.8 % Mean Corpuscular Volume 82.7 FL Mean Corpuscular Hemoglobin 26.7 PG Mean Corpuscular Hemoglobin 32.3 % Concent Red Cell Distribution Width 14.0 % Platelet Count 282 TH/MM3 Mean Platelet Volume 7.8 FL Neutrophils (%) (Auto) 73.6 % Lymphocytes (%) (Auto) 15.0 % Monocytes (%) (Auto) 8.1 % Eosinophils (%) (Auto) 2.8 % Basophils (%) (Auto) 0.5 % Neutrophils # (Auto) 7.7 TH/MM3 Lymphocytes # (Auto) 1.6 TH/MM3 Monocytes # (Auto) 0.8 TH/MM3 Eosinophils # (Auto) 0.3 TH/MM3 Basophils # (Auto) 0.1 TH/MM3 CBC Comment DIFF FINAL Differential Comment Sodium Level 138 MEQ/L Potassium Level 3.5 MEQ/L Chloride Level 101 MEQ/L Carbon Dioxide Level 29.3 MEQ/L Anion Gap 8 MEQ/L Blood Urea Nitrogen 12 MG/DL Creatinine 1.25 MG/DL Estimat Glomerular Filtration 61 ML/MIN Rate Random Glucose 96 MG/DL Calcium Level 9.8 MG/DL Labs from over the weekend reviewed. Mild anemia noted. GFR somewhat improved. [place] level once again drawn post dose and so likely spuriously high. Vitals/IOs Vital Signs Date Time Temp Pulse Resp B/P Pulse Ox O2 Delivery O2 Flow Rate FiO2 01/08/17 05:26 97.9 64 16 114/64 96 Assessment & Plan Problem List: (1) Schizoaffective disorder ICD Code: F25.9 Assessment & Plan Patient seems to be improving with current medication combination. I will continue psychotropics as ordered. To consider further titration of patient's Invega. I am loath to taper his laxative given that he did have severe constipation. Defer to hospitalist in this regard. Continue to monitor on the inpatient unit. Continue other medications and care as ordered. Justification for Cont. Inpt. Monitoring for impairments in safety. None noted. Impairment in reality construction, improving. High risk for decompensation in less restrictive environment. Discharge Planning Pending psychiatric stabilization Request HC Surrog/Guard Advoc?: Yes Problem Qualifiers (1) Schizoaffective disorder: Qualified Code: F25.0 - Schizoaffective disorder, bipolar type Masoud Bradshaw MD Jan 08, 2017 11:45
[2017-01-08 15:33] VITALS: BP 127/85; PULSE 73; RESP 18; TEMP 97.8; O2SAT 100
[2017-01-08] MEDS: QUEtiapine FUMARATE 300 MG TAB PO SCH (20:50)
[2017-01-08] MEDS: BENZTROPINE MESYLATE 1 MG TAB PO SCH (20:50)
[2017-01-08] MEDS: DOCUSATE SODIUM 50 MG/SENNA 8.6 MG TAB PO SCH (20:50)
[2017-01-09] MEDS: CARBOXYMETHYLCELL SOD 0.5% OPTH SOLN 15 ML BTL EACH EYE SCH ×4 (06:00→17:46)
[2017-01-09 06:18] VITALS: BP 107/63; PULSE 58; RESP 16; TEMP 98; O2SAT 96
[2017-01-09 08:34] LABS: BICARBONATE 27.4 MEQ/L (21.0-32.0); MAGNESIUM 2.5 MG/DL (1.5-2.5); POTASSIUM 3.6 MEQ/L (3.5-5.1)
[2017-01-09] MEDS: LITHIUM CARBONATE 300 MG SLOW RELEASE TAB PO SCH ×2 (09:00→20:23)
[2017-01-09] MEDS: amLODIPine BESYLATE 5 MG TAB PO SCH (09:00)
[2017-01-09] MEDS: METOPROLOL TARTRATE 50 MG TAB PO SCH ×2 (09:00→20:25)
[2017-01-09] MEDS: PALIPERIDONE ER 3 MG TAB PO SCH ×2 (09:48→20:25)
[2017-01-09] MEDS: DOCUSATE SODIUM 50 MG/SENNA 8.6 MG TAB PO SCH ×2 (09:49→20:25)
[2017-01-09] MEDS: QUEtiapine FUMARATE 25 MG TAB PO SCH (09:49)
--- NOTE | 2017-01-09 11:32 | HHI.PR ---
Subjective Remarks In the chair. Says he is eating better and he is drinking more fluids. Had a BM however patient says he did not have a BM since he came to the hospital. No n/v/ d/c. Objective Vitals Vital Signs Date Time Temp Pulse Resp B/P Pulse Ox O2 Delivery O2 Flow Rate FiO2 01/09/17 06:18 98.0 58 16 107/63 96 01/08/17 15:33 97.8 73 18 127/85 100 Result Diagram: 01/07/17 1306 01/09/17 0710 Imaging Last Impressions Abdomen X-Ray 01/07/17 0000 Signed Impressions: Service Date/Time: Saturday, January 07, 2017 21:57 - CONCLUSION: 1. No acute findings. Leopoldo Adams MD Renal Ultrasound 01/02/17 0000 Signed Impressions: Service Date/Time: Monday, January 02, 2017 20:39 - CONCLUSION: Asymmetric renal size. No evidence of hydronephrosis.. Orestes Starr MD Objective Remarks GENERAL: This is a well-nourished, well-developed patient, in no apparent distress. EYES: Extraocular motions intact. No scleral icterus. No drainage. Right lower lid mild erythema-bilateral eyes appear dry, improving. CARDIOVASCULAR: Regular rate and rhythm RESPIRATORY: Clear to auscultation. Breath sounds equal bilaterally. No wheezes , rales, or rhonchi. GASTROINTESTINAL: Abdomen soft, non-tender, nondistended. No guarding. MUSCULOSKELETAL: Extremities without clubbing, cyanosis, or edema. No joint tenderness, effusion, or edema noted. No calf tenderness. Negative Homans sign bilaterally. NEUROLOGICAL: Awake and alert. No focal deficits appreciated. Motor and sensory grossly within normal limits. Five out of 5 muscle strength in all muscle groups. Normal speech. A/P Problem List: (1) Bipolar disorder, manic ICD Code: F31.10 Status: Chronic (2) Schizophrenia, paranoid, chronic ICD Code: F20.0 Status: Chronic Assessment and Plan 51-year-old male with past medical history which includes hypertension, bipolar disorder and schizophrenia initially presented to the emergency department with complaints of not being able sleep for the past 3 days. Constipation Partial Small bowel Obstruction, resolved KUB reviewed showing mild adynamic ileus or developing partial small bowel obstruction. Repeat KUB normal Resume regular diet Pericolace BID Laxatives/stool softeners as need Monitor Monitor closely Keep hydrated Bipolar Insomnia Management per psychiatric team PAREVEN on CKD2. Elevated creatinine-appears chronic baseline creatinine at baseline around 1.1-1.2. Noted Cr 1.6 01/01. Encourage PO hydration Encourage by mouth hydration Recheck in AM - labs still to be drawn for today Avoid nephrotoxins Renal US personally reviewed and essentially unremarkable Will order UA - nl Patient is asymptomatic Hypertension chronic Continue patient's home medications include metoprolol and Norvasc Monitor blood pressure trend Dry eye bilaterally Refresh Tears every 6 hours DVT prophylaxis patient is ambulatory and low risk Discussed with the patient, nurse Nathalia Daly MD Jan 09, 2017 11:32
--- NOTE | 2017-01-09 13:08 | HHI.PYPN ---
Subjective Remarks Patient seen and examined with counselor and nurse. Chart reviewed. Case discussed in treatment team. On my examination today, patient is in fairly good spirits. His thought process is more linear. He does not like remaining in the hospital and would like to be home with mother. He uses suicidal ideation as a metaphor for his distress at being in the hospital, but he denies any actual suicidal plan or intent. No AVH. No side effects from medications. No physical complaints. Review of Systems ROS Limitations: Poor Historian Except as stated in HPI: all other systems reviewed are Neg Objective Alert: Yes [place]: Person, Place Mood: Calm Affect: Blunted Memory Intact: Comment (not formally assessed) Hallucinations: Other (No AVH) Delusions: No Delusion Type: Other (No delusions) Suicidal: Ideation (Ongoing SI as metaphor. No plan or intent.) Homicidal: Ideation (no HI) Insight/Judgment Poor Remarks No motor abnormalities noted. Thought process more linear. Grooming and hygiene fair. Labs Test 01/09/17 07:10 Sodium Level 138 MEQ/L Potassium Level 3.6 MEQ/L Chloride Level 104 MEQ/L Carbon Dioxide Level 27.4 MEQ/L Anion Gap 7 MEQ/L Blood Urea Nitrogen 11 MG/DL Creatinine 1.33 MG/DL Estimat Glomerular Filtration 57 ML/MIN Rate Random Glucose 95 MG/DL Calcium Level 9.7 MG/DL Magnesium Level 2.5 MG/DL Labs reviewed. GFR fairly stable. Vitals/IOs Vital Signs Date Time Temp Pulse Resp B/P Pulse Ox O2 Delivery O2 Flow Rate FiO2 01/09/17 06:18 98.0 58 16 107/63 96 Assessment & Plan Problem List: (1) Schizoaffective disorder ICD Code: F25.9 Assessment & Plan Patient continues to improve with respect to psychosis. Continue Invega 6mg BID as ordered. Continue Seroquel as ordered. Continue lithium as ordered. Appreciate hospitalist input. Continue other medications and care as ordered. Justification for Cont. Inpt. Monitoring for impairments in safety. None noted. Resolving impairments in reality construction. Risk for decompensation and less restrictive environment. Discharge Planning Mother reportedly plans to come to see the patient this evening. If she agrees that the patient is improving, we could contemplate discharge later in the week. Request HC Surrog/Guard Advoc?: Yes Problem Qualifiers (1) Schizoaffective disorder: Qualified Code: F25.0 - Schizoaffective disorder, bipolar type Masoud Bradshaw MD Jan 09, 2017 13:08
[2017-01-09 15:32] VITALS: BP 136/81; PULSE 93; RESP 18; TEMP 97.7; O2SAT 99
--- NOTE | 2017-01-09 16:48 | PD.TTN ---
Present for Treatment Team Treatment Team Staff: Provider (Dr. Bradshaw), Nurse (Magrarita), Psych Therapist (QUIN Polanco) Patient Problems 1. Discharge planning 2. Medication compliance 3. Knowledge deficit 4. Lack of coping skills Progress Toward Goals Provider Input: Dr. Bradshaw requested an update regarding patient's behavioral status, medication management, patient compliance, and plan for discharge. Nurse Input: Margarita reported the patient remains compliant with medications and without behavioral incident. Per Margarita, the patient slept poorly and is displaying mild confusion, but improving overall. Psych Therapist Input: Counselor reported that I have spoken to patient's mother and she plans to visit the patient this evening. Counselor will contact patient's mother tomorrow to inquire how the visit went and if mom has any concerns. Documentation Scribe: QUIN Polanco Date Resolved: Jan 09, 2017 Anne Rivas Jan 09, 2017 16:48
[2017-01-09] MEDS: BENZTROPINE MESYLATE 1 MG TAB PO SCH (20:24)
[2017-01-09] MEDS: QUEtiapine FUMARATE 300 MG TAB PO SCH (20:26)
[2017-01-10] MEDS: CARBOXYMETHYLCELL SOD 0.5% OPTH SOLN 15 ML BTL EACH EYE SCH ×3 (06:00→12:00)
[2017-01-10 06:33] VITALS: BP 124/74; PULSE 74; RESP 16; TEMP 99.1; O2SAT 98
[2017-01-10] MEDS: METOPROLOL TARTRATE 50 MG TAB PO SCH (08:24)
[2017-01-10] MEDS: PALIPERIDONE ER 3 MG TAB PO SCH (08:24)
[2017-01-10] MEDS: QUEtiapine FUMARATE 25 MG TAB PO SCH (08:24)
[2017-01-10] MEDS: LITHIUM CARBONATE 300 MG SLOW RELEASE TAB PO SCH (08:25)
[2017-01-10] MEDS: amLODIPine BESYLATE 5 MG TAB PO SCH (08:25)
[2017-01-10] MEDS: DOCUSATE SODIUM 50 MG/SENNA 8.6 MG TAB PO SCH (08:25)
[2017-01-10 08:32] LABS: AUTOMATED NEUTROPHIL # 5.4 TH/MM3 (1.8-7.7); BASOPHIL # 0.1 TH/MM3 (0-0.2); BASOPHIL % 0.7 % (0.0-2.0); EOSINOPHIL # 0.4 TH/MM3 (0-0.4); EOSINOPHIL % 4.5 % (0.0-4.0); HEMO FLAGS DIFF FINAL; LYMPH % 21.9 % (9.0-44.0); LYMPHOCYTE # 1.8 TH/MM3 (1.0-4.8); MEAN CELL VOLUME 80.6 FL (80.0-100.0); MEAN CORPUSCULAR HEMOGLOBIN 27.8 PG (27.0-34.0); MEAN CORPUSCULAR HGB CONC 34.4 % (32.0-36.0); MONO % 7.7 % (0.0-8.0); NEUT % 65.2 % (16.0-70.0); PLATELET COUNT 265 TH/MM3 (150-450); RED BLOOD COUNT 4.84 MIL/MM3 (4.50-5.90); RED CELL DISTRIBUTION WIDTH 13.8 % (11.6-17.2); WHITE BLOOD COUNT 8.3 TH/MM3 (4.0-11.0)
[2017-01-10 09:04] LABS: POTASSIUM 3.5 MEQ/L (3.5-5.1)
--- NOTE | 2017-01-10 11:41 | HHI.PR ---
Subjective Remarks Ambulating. Says he has no pain in his belly. Says she did not have a BM since he came. Per nurse, he did have BM. Patient has no other complaints at this time. Encourage PO hydration. Objective Vitals Vital Signs Date Time Temp Pulse Resp B/P Pulse Ox O2 Delivery O2 Flow Rate FiO2 01/10/17 06:33 99.1 74 16 124/74 98 01/09/17 15:32 97.7 93 18 136/81 99 I/O 01/09/17 01/09/17 01/09/17 01/10/17 01/10/17 01/10/17 06:59 14:59 22:59 06:59 14:59 22:59 Intake Total 960 ml Balance 960 ml Intake Oral 960 ml Result Diagram: 01/10/17 0650 01/10/17 0650 Imaging Last Impressions Abdomen X-Ray 01/07/17 0000 Signed Impressions: Service Date/Time: Saturday, January 07, 2017 21:57 - CONCLUSION: 1. No acute findings. Leopoldo Adams MD Renal Ultrasound 01/02/17 0000 Signed Impressions: Service Date/Time: Monday, January 02, 2017 20:39 - CONCLUSION: Asymmetric renal size. No evidence of hydronephrosis.. Orestes Starr MD Objective Remarks GENERAL: This is a well-nourished, well-developed patient, in no apparent distress. EYES: Extraocular motions intact. No scleral icterus. No drainage. Right lower lid mild erythema-bilateral eyes appear dry, improving. CARDIOVASCULAR: Regular rate and rhythm RESPIRATORY: Clear to auscultation. Breath sounds equal bilaterally. No wheezes , rales, or rhonchi. GASTROINTESTINAL: Abdomen soft, non-tender, nondistended. No guarding. MUSCULOSKELETAL: Extremities without clubbing, cyanosis, or edema. No joint tenderness, effusion, or edema noted. No calf tenderness. Negative Homans sign bilaterally. NEUROLOGICAL: Awake and alert. No focal deficits appreciated. Motor and sensory grossly within normal limits. Five out of 5 muscle strength in all muscle groups. Normal speech. A/P Problem List: (1) Bipolar disorder, manic ICD Code: F31.10 Status: Chronic (2) Schizophrenia, paranoid, chronic ICD Code: F20.0 Status: Chronic Assessment and Plan 51-year-old male with past medical history which includes hypertension, bipolar disorder and schizophrenia initially presented to the emergency department with complaints of not being able sleep for the past 3 days. Constipation Partial Small bowel Obstruction, resolved KUB reviewed showing mild adynamic ileus or developing partial small bowel obstruction. Repeat KUB normal Resume regular diet Pericolace BID Laxatives/stool softeners as need Monitor Monitor closely Keep hydrated Bipolar Insomnia Management per psychiatric team PARVEEN on CKD2. Elevated creatinine-appears chronic baseline creatinine at baseline around 1.1-1.2. Noted Cr 1.6 01/01. Encourage PO hydration Encourage by mouth hydration Recheck in AM - labs still to be drawn for today Avoid nephrotoxins Renal US personally reviewed and essentially unremarkable Will order UA - nl Patient is asymptomatic Hypertension chronic Continue patient's home medications include metoprolol and Norvasc Monitor blood pressure trend Dry eye bilaterally Refresh Tears every 6 hours DVT prophylaxis patient is ambulatory and low risk Discussed with the patient, nurse Nathalia Daly MD Jan 10, 2017 11:41
[2017-01-10] MEDS ORDERED: Benztropine PO (11:54)
[2017-01-10] MEDS ORDERED: REFR0.5D4 EACH EYE (11:54)
[2017-01-10] MEDS ORDERED: LITH300T PO (11:54)
[2017-01-10] MEDS ORDERED: QUET1TAB10 PO (11:55)
[2017-01-10] MEDS ORDERED: QUET1TAB7 PO (11:55)
[2017-01-10] MEDS ORDERED: SENN1TAB PO (11:55)
[2017-01-10] MEDS ORDERED: INVE3TAB2 PO (11:55)
--- NOTE | 2017-01-10 11:55 | HHI.DS ---
Psychiatry Discharge Summary Inpatient Psychiatric care?: Yes Advance Directive: No Reason Not Provided: Lacks capacity Mental Health AdvanceDirective: No Health Care Proxy: No Admission Admission Date Dec 23, 2016 at 11:16 Admission Diagnosis: (1) Schizoaffective disorder ICD Code: F25.9 Brief History As per ER documentation 51-year-old male with record history of schizophrenia , paranoid type as well as bipolar disorder who presents to ED sent from [facility] outpatient provider Noah Hossein who apparently saw him in outpatient setting and recommended further evaluation for possible inpatient care.The note from Mr. Noah Catalan reads that " Jose is compliant with medication yet remains manic and psychotic, not sleeping, very confused". It is reported that he has not slept in 3 days.The patient is seen in J pod. Awake, alert male. Poor hygiene. Poor concentration. He is unable to provide a cogent history manner as he is psychotic. He appears internally preoccupied although denies auditory hallucinations. 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 [employer]. You know [employer]. He then states " How about them dolphins". He does tell me that he was unable to sleep last night. he is denying any suicidal or homicidal ideation. Patient has urinated in beverage cup while in J pod. Apparently patient lives with his mom, but she is been out of town for the past several days due to a recent in the family. This seems to have prompted the [facility] provider to send him in as he is not safe at home alone.Patient has an extensive psychiatric history including multiple admissions here under the care of Dr. García as well as being sent to [facility]. 51-year-old man, domicile with his mother, unemployed, on SSI, with extensive psychiatric history of schizophrenia and bipolar disorder, multiple psychiatric hospitalizations, active outpatient psychiatric care in [facility], he is on Seroquel 300 mg, lithium 450 mg twice a day, benztropine 1 mg twice a day, Invega Sustenna 234 many grams mostly. He has no significant medical history, he was brought by outpatient provider in [facility] due to confusion and insomnia. Today in my evaluation she presents with a significant flat affect, poverty of speech and blocking thought. Patient answer basically with monosyllables, mostly with yes and no. Patient seems to be internally preoccupied, but he reports good mood, he says that he doesn't know the reason of his hospitalization, he reports compliant with his medications, he reports good appetite, good sleep, good level of concentration. Patient is oriented 3. No agitation or aggressive behavior has been reported. He denies suicidal and homicidal ideation, he denies visual and auditory hallucinations. Patient reports auditory hallucinations of voices telling him "you are a CIC", but he cannot explain what CIC means. Tobacco Use In Past 30 Days: No Tobacco Past 30 Days Alcohol Use: Never Hospital Course Patient was admitted to a locked, inpatient psychiatric unit. A general medical consultation was obtained. Appropriate precautions were in place throughout patient's hospital stay. Patient was seen and examined on the unit by psychiatry and also visited by counselor. Psychotropic medications were adjusted. [place] was resumed and Seroquel was titrated. These were subsequently tapered somewhat and Invega was introduced as patient's mother reported a positive response to this medication in the past. Patient seemed to have the most robust improvement with introduction and titration of Invega. Patient tolerated psychotropics well without side effects. There is no evidence of any suicidality or homicidality on the inpatient unit. Patient's behavior improved with the benefit of psychopharmacologic treatment. On the day of discharge: Patient seen and examined with counselor and nurse. Chart reviewed. Case discussed with nursing staff reports that the patient seems much improved. On my examination today, the patient is in good spirits. He is eager for discharge from the inpatient psychiatric unit. He denies any suicidal or homicidal ideation, intent or plan on direct questioning and contracts for safety. Thought process linear today. No delusions elicited. Denies audiovisual hallucinations. No mood symptoms. Future oriented. Denies side effects from medications. No physical complaints. I have reached out to the patient's mother who visited with the patient yesterday evening and feels that he is much improved and ready for discharge home. 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 Patient has maximized benefit from this inpatient psychiatric hospital stay and will be discharged today with psychiatric follow-up as arranged by counselor. Patient is also to follow-up with primary care. I have counseled the patient regarding warning signs for need to return to the psychiatric emergency room as part of the general safety plan. Results Blood Pressure 124 / 74 Vital Signs Date Time Temp Pulse Resp B/P Pulse Ox O2 Delivery O2 Flow Rate FiO2 01/10/17 06:33 99.1 74 16 124/74 98 Laboratory Tests Test 01/07/17 01/09/17 01/10/17 13:06 07:10 06:50 Hemoglobin 12.5 GM/DL (13.0-17.0) Hematocrit 38.8 % (39.0-51.0) Mean Corpuscular Hemoglobin 26.7 PG (27.0-34.0) Neutrophils (%) (Auto) 73.6 % (16.0-70.0) Monocytes (%) (Auto) 8.1 % (0.0-8.0) Estimat Glomerular Filtration 61 ML/MIN (>89) 57 ML/MIN (>89) 71 ML/MIN (>89) Rate Creatinine 1.33 MG/DL (0.60-1.30) Eosinophils (%) (Auto) 4.5 % (0.0-4.0) Chloride Level 109 MEQ/L (98-107) Laboratory Results Test 01/06/17 11:50 [place] Level 1.2 MEQ/L (0.5-1.5) Summary of Procedures None done Imaging Last Impressions Abdomen X-Ray 01/07/17 0000 Signed Impressions: Service Date/Time: Saturday, January 07, 2017 21:57 - CONCLUSION: 1. No acute findings. Leopoldo Adams MD Renal Ultrasound 01/02/17 0000 Signed Impressions: Service Date/Time: Monday, January 02, 2017 20:39 - CONCLUSION: Asymmetric renal size. No evidence of hydronephrosis.. Orestes Starr MD Pending results at discharge: No Medications # of Antipsychotic meds at D/C: 2 Appropriate >1 Antipsych meds?: 4 Approp Antipsych med options 1 - Minimum of three failed multiple trials of monotherapy. 2 - Documented plan to taper to monotherapy due to previous use of multiple meds OR cross-taper in progress at D/C. 3 - Documentation of augmentation of Clozapine. 4 - Justification other than those listed in allowable values 1-3, document here : Required antipsychotic polypharmacy for adequate stabilization Discharge Discharge Date: Jan 10, 2017 Discharge Diagnosis: (1) Schizoaffective disorder Diagnosis: Principal (stabilized) ICD Code: F25.9 Mental Status Exam at Disch Patient is casually dressed. Patient is well groomed. He is maintaining basic hygiene. Patient is awake and alert and oriented to person and hospital at least. No evidence of delirium. No motor abnormalities appreciated. Speech is within normal limits for rate, tone, volume. Memory grossly intact on clinical exam. Mood is good. Affect is full and reactive. Thought process linear. No delusions elicited. Denies audiovisual hallucinations. Denies suicidal or homicidal ideation, intent, or plan and contracts for safety. Insight and judgment seem fair. Pt Condition on Discharge: Stable Discharge Disposition: Discharge Home Discharge Instructions Diet Instructions: As Tolerated, No Restrictions Activities you can perform: Weight Bearing as Katelyn Scheduled Appointment: as per counselor's notes New Medications: Paliperidone ER (Invega) 6 Mg Tab 6 MG PO BID Schizophrenia Days 15 Ref 1 TAB Carboxymethylcellulose Sodium Opth Drops (Refresh Tears Opth Drops) 0.5% Drops 1 DROP EACH EYE Q6HR Dry Eye #1 Ref 1 BOTTLE [place] Carbonate ER ([place] Carbonate ER) 300 Mg Tab 300 MG PO BID Mental Health Days 15 Ref 1 TAB Quetiapine (Quetiapine) 25 Mg Tab 50 MG PO DAILY Mental Health Days 15 Ref 1 TAB Quetiapine (Quetiapine) 300 Mg Tab 300 MG PO HS Mental Health Days 15 Ref 1 TAB Sennosides-Docusate Sodium (Senna Plus 8.6-50 mg) 1 Tab Tab 1 TAB PO BID Constipation Days 15 Ref 1 TAB ([Benztropine]) 1 MG TAB 1 MG PO HS Side effect management Days 15 Ref 1 TAB Continued Medications: Amlodipine (Amlodipine) 5 Mg Tab 5 MG PO DAILY Blood Pressure Management #30 Ref 0 TAB Metoprolol Tartrate (Metoprolol Tartrate) 50 Mg Tab 50 MG PO BID #60 Ref 0 TAB Discontinued Medications: Benztropine (Benztropine) 0.5 Mg Tab 1 MG PO HS #30 Ref 0 TAB [place] Carbonate ER ([place] Carbonate ER) 450 Mg Tab 450 MG PO BID mental health #60 Ref 2 TAB Paliperidone ER (Invega) 3 Mg Tab 3 MG PO DIRECTED Schizophrenia #30 Ref 0 TAB Paliperidone Palmitate Inj (Invega Sustenna Inj) 234 Mg/1.5 Ml Inj 234 MG IM q21 days Schizophrenia #2 Ref 0 VIAL Quetiapine (Seroquel) 300 Mg Tab 300 MG PO HS mental health #30 Ref 2 TAB Discharge Time > 30 minutes Discharge/Advance Care Plan Health Problems: (1) Schizoaffective disorder Goals to promote your health * To prevent worsening of your condition and complications * To maintain your health at the optimal level Directions to meet your goals Take your medications as prescribed Follow your dietary instruction Follow activity as directed Keep your appointments as scheduled Take your immunizations and boosters as scheduled If your symptoms worsen call your PCP, if no PCP go to Urgent Care Center or Emergency Room For 25/12 questions related to your inpatient stay or results of tests pending at discharge, please contact Dr. Masoud Bradshaw at Smoking is Dangerous to Your Health. Avoid second hand smoking Problem Qualifiers (1) Schizoaffective disorder: Qualified Code: F25.0 - Schizoaffective disorder, bipolar type Masoud Bradshaw MD Jan 10, 2017 11:55
[2017-01-10] MEDS ORDERED: INVE6TAB3 PO (12:04)
[2017-01-10] MEDS ORDERED: PALIPERIDONE ER 6 MG TAB PO SCH (21:00)
== END 2017-01-10 16:35 | disposition home or self-care (01) | DRG 885 ==
LOC: NEPD 11:08 → NEDA 12-23 11:16 → H270 12-23 12:45 → H260 12-25 18:22
PROVIDERS: ADMIT Psychiatry & Neurology Psychiatry; ATTEND Psychiatry & Neurology Psychiatry
DX: F25.0 Schizoaffective disorder, bipolar type (principal); N17.9 Acute kidney failure, unspecified; R45.851 Suicidal ideations; E83.41 Hypermagnesemia; K56.0 Paralytic ileus; G47.00 Insomnia, unspecified; I12.9 Hypertensive chronic kidney disease with stage 1 through stage 4 chronic kidney disease, or unspecified chronic kidney disease; N18.2 Chronic kidney disease, stage 2 (mild); Z79.899 Other long term (current) drug therapy; Z81.8 Family history of other mental and behavioral disorders
CPT/HCPCS: 74000; 76775; 80048; 80053; 80061; 80178; 80307; 82550; 83036; 83735; 84443; 85007; 85025; 85027